=== PATIENT | male | born 1990 | race Caucasian/White ===

== ENCOUNTER 2016-11-21 06:18 | Emergency (ER) | payer MEDICAID ==
[~2016-11-21] VITALS: Ht 172.7 cm; Wt 113.4 kg
[~2016-11-21 06:18] MED LIST: AUGMENTIN 875-1 EACH PO; LEVAQUIN 750 M750 MG PO; NAPROSYN500 M1 PO; NOMEDS XX; NORCO 325 MG-51 TAB PO
--- NOTE | 2016-11-21 06:55 | Emergency Room Report ---
History of Present Illness Time Seen by MD Grewal Presenting Problem in Triage Pt arrived:Walked Presenting Problem:SORE THROAT, PAINFUL TO SWALLOW, BILATERAL EAR DISCOMFORT, SINCE YESTERDAY. 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 N Clinical Suspician of Infection? N Mental Status: 1 - Regular (Normal Baseline) Sepsis Risk:Possible Sepsis Risk Have you (or family members/close friends) recently traveled outside the [place]? N If Yes, where/when: Have you had exposure to infectious disease within the past month? N TB? Other? Specify: Source patient, RN notes reviewed, old records Exam Limitations no limitations Comment pt with laryngitis and sore throat with psychiatric arnp cough since starting new job with exposure to dust fibers- he also c/o of bilat carpel tunnel syndrome with acute excerbation Cardiac Chest Pain Chest pain indicative of cardiac No Timing/Duration this evening Severity moderate ALLERGIES Coded Allergies: No Known Allergies (07/19/16) Home Medications Reported Medications No Known Home Medications History Medical History General CAD? No Angina: No CA: No Hypertension? No Hyperlipidemia? No CHF? No DVT? No PE? No COPD? No Asthma? No Anemia? No GERD? No Gastric ulcers? No GI Bleed? No Hernia? No Thyroid Problems? No Hypothyroidism? No CVA? No Seizures? No Diabetes? No Renal Insuffiency? No End Stage Renal Disease? No UTI? No Stones? No BPH? No GB Disease: No Nephritic Syndrome? No Asplenia? No Hepatitis? No Sickle Cell Disease? No Arthritis? No Migraines? No Cataracts? No Glaucoma? No MRSA? No HIV? No TB? No Anxiety? No Depression? No Cancer? No More? No Immunization Hx DT/Tetanus Unknown Surgical Hx Previous Surgery?Y Tonsils Social History Smoking Hx Smoker: Never Smoker Tobacco: No Type Cigarettes Packs/day < 1 Pack Alcohol Alcohol: Yes Drugs none Review of Systems All Other Systems Reviewed and Negative Constitutional denies fever Eyes denies drainage ENT see HPI, throat pain. denies: ear pain, epistaxis, throat swelling. Respiratory denies cough, denies shortness of breath, denies wheezing Cardiovascular denies chest pain, denies palpitations, denies syncope Gastrointestinal denies abdominal pain, denies diarrhea, denies vomiting Genitourinary denies: dysuria, frequency, hesitancy, hematuria. Musculoskeletal see HPI, denies back pain, denies joint pain, denies joint swelling, denies neck pain, other Skin denies rash Psychiatric/Neurological denies headache, denies seizure Physical Exam Vital Signs Vital Signs Date Time Temp Pulse Resp B/P Pulse O2 O2 Flow FiO2 Ox Delivery Rate 11/21 0623 98.6 96 22 128/91 99 - WBC >12,000 or <4,000 or 10% bands? 2 or more SIRS Criteria Met? B/P:128/91 MAP:103 Creatinine >2.0? UA output<0.5ml/kg/hr for 2 hrs? Platelet count >100,000? Lactate >2.0mmol/1? INR >1.2 or PTT > than 60 sec? Evidence of Organ Dysfunction? Provider documented clinical suspician of infection? N Sepsis Criteria Count: 2 Sepsis Risk: Possible Sepsis Risk General Appearance no apparent distress Eye Exam - bilateral eye PERRL, bilateral eye EOMI Ear, Nose, Throat normal ENT inspection, normal pharynx Neck supple Respiratory Status No: respiratory distress. Lung Sounds bilateral: lungs clear. 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 No Results/Orders Orders Procedure Date/time Status STREP SCREEN THROAT 11/21 629 Complete CULTURE, THROAT 11/21 624 Active Departure Departure Time of Disposition 0708 Disposition DC Home or Self Care(routine) Clinical Impression Primary Impression: Pharyngitis Qualifiers: Pharyngitis/tonsillitis etiology: unspecified etiology Qualified Code: J02.9 - Acute pharyngitis, unspecified Secondary Impressions: CTS (carpal tunnel syndrome) Qualifiers: Laterality: bilateral Qualified Code: G56.03 - Carpal tunnel syndrome, bilateral upper limbs Condition STABLE Patient Instructions DI for Carpal Tunnel Syndrome Additional Instructions use meds and wear spints and see pcp and ortho for follow up Discharge Counseling Counseled pt/family regarding diagnosis, test results, medications/RX, follow up needs Prescriptions Current Visit Scripts CEPHALEXIN (Keflex 500MG Capsule) 500 MG PO Q8H #21 CAP Prednisone (Prednisone 20MG) 20 MG PO BID #10 TAB ED Critical Care Critical Care No at 0711
--- NOTE | 2016-11-21 06:55 | Emergency Room Report ---
History of Present Illness Time Seen by MD Grewal Presenting Problem in Triage Pt arrived:Walked Presenting Problem:SORE THROAT, PAINFUL TO SWALLOW, BILATERAL EAR DISCOMFORT, SINCE YESTERDAY. 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 N Clinical Suspician of Infection? N Mental Status: 1 - Regular (Normal Baseline) Sepsis Risk:Possible Sepsis Risk Have you (or family members/close friends) recently traveled outside the [place]? N If Yes, where/when: Have you had exposure to infectious disease within the past month? N TB? Other? 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 No Angina: No [place]: No Hypertension? No Hyperlipidemia? No CHF? No DVT? No PE? No COPD? No Asthma? No Anemia? No GERD? No Gastric ulcers? No GI Bleed? No Hernia? No Thyroid Problems? No Hypothyroidism? No CVA? No Seizures? No Diabetes? No Renal Insuffiency? No End Stage Renal Disease? No UTI? No Stones? No BPH? No GB Disease: No Nephritic Syndrome? No Asplenia? No Hepatitis? No Sickle Cell Disease? No Arthritis? No Migraines? No Cataracts? No Glaucoma? No MRSA? No HIV? No TB? No Anxiety? No Depression? No Cancer? No More? No Immunization Hx DT/Tetanus Unknown Surgical Hx Previous Surgery?Y Tonsils Social History Smoking Hx Smoker: Never Smoker Tobacco: No Type Cigarettes Packs/day < 1 Pack Alcohol Alcohol: Yes Drugs none Review of Systems All Other Systems Reviewed and Negative Constitutional denies fever Eyes denies drainage ENT see HPI, throat pain. denies: ear pain, epistaxis, throat swelling. Respiratory denies cough, denies shortness of breath, denies wheezing Cardiovascular denies chest pain, denies palpitations, denies syncope Gastrointestinal denies abdominal pain, denies diarrhea, denies vomiting Genitourinary denies: dysuria, frequency, hesitancy, hematuria. Musculoskeletal see HPI, denies back pain, denies joint pain, denies joint swelling, denies neck pain, other Skin denies rash Psychiatric/Neurological denies headache, denies seizure Physical Exam Vital Signs Vital Signs Date Time Temp Pulse Resp B/P Pulse O2 O2 Flow FiO2 Ox Delivery Rate 11/21 0623 98.6 96 22 128/91 99 - WBC >12,000 or <4,000 or 10% bands? 2 or more SIRS Criteria Met? B/P:128/91 MAP:103 Creatinine >2.0? UA output<0.5ml/kg/hr for 2 hrs? Platelet count >100,000? Lactate >2.0mmol/1? INR >1.2 or PTT > than 60 sec? Evidence of Organ Dysfunction? Provider documented clinical suspician of infection? N Sepsis Criteria Count: 2 Sepsis Risk: Possible Sepsis Risk General Appearance no apparent distress Eye Exam - bilateral eye PERRL, bilateral eye EOMI Ear, Nose, Throat normal ENT inspection, normal pharynx Neck supple Respiratory Status No: respiratory distress. Lung Sounds bilateral: lungs clear. 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 No Results/Orders Orders Procedure Date/time Status STREP SCREEN THROAT 11/21 629 Complete CULTURE, THROAT 11/21 624 Active Departure Departure Time of Disposition 0708 Disposition DC Home or Self Care(routine) Clinical Impression Primary Impression: Pharyngitis Qualifiers: Pharyngitis/tonsillitis etiology: unspecified etiology Qualified Code: J02.9 - Acute pharyngitis, unspecified Secondary Impressions: CTS (carpal tunnel syndrome) Qualifiers: Laterality: bilateral Qualified Code: G56.03 - Carpal tunnel syndrome, bilateral upper limbs Condition STABLE Patient Instructions DI for Carpal Tunnel Syndrome Additional Instructions use meds and wear spints and see pcp and ortho for follow up Discharge Counseling Counseled pt/family regarding diagnosis, test results, medications/RX, follow up needs Prescriptions Current Visit Scripts CEPHALEXIN (Keflex 500MG Capsule) 500 MG PO Q8H #21 CAP Prednisone (Prednisone 20MG) 20 MG PO BID #10 TAB ED Critical Care Critical Care No at 0711
[2016-11-21] MEDS ORDERED: KEFLEX 500MG.500 MG PO (07:10)
[2016-11-21] MEDS ORDERED: PREDNISONE 20MG20 MG PO (07:10)
[2016-11-21 07:56] VITALS: BP 121/79
== END 2016-11-21 07:57 | disposition home or self-care (01) ==
LOC: ER 06:18
DX: J02.9 Acute pharyngitis, unspecified (principal); G56.03 Carpal tunnel syndrome, bilateral upper limbs

== ENCOUNTER 2016-11-22 03:36 | Emergency (ER) | payer MEDICAID ==
[~2016-11-22] VITALS: Ht 172.7 cm; Wt 113.4 kg
[~2016-11-22 03:36] MED LIST changes: +KEFLEX 500MG.500 MG PO; +PREDNISONE 20MG20 MG PO
--- NOTE | 2016-11-22 03:54 | Emergency Room Report ---
History of Present Illness Time Seen by MD Irizarry Presenting Problem in Triage Pt arrived:Walked Presenting Problem:RIGHT EAR PAIN, PT STATES PAIN WOKE HIM ABOUT 45 MINS AGO. 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 N Clinical Suspician of Infection? N Mental Status: 1 - Regular (Normal Baseline) Sepsis Risk:Low Sepsis Risk Have you (or family members/close friends) recently traveled outside the [place]? N If Yes, where/when: Have you had exposure to infectious disease within the past month? N TB? Other? Specify: Source patient, RN notes reviewed, old records Exam Limitations no limitations Comment was here last pm with sore throat - has not started meds yet - has rt ear pain with no trauma or rash Cardiac Chest Pain Chest pain indicative of cardiac No Timing/Duration this evening Severity moderate ALLERGIES Coded Allergies: No Known Allergies (07/19/16) Home Medications Active Scripts CEPHALEXIN (Keflex 500MG Capsule) 500 MG PO Q8H #21 CAP Prov: 11/21/16 Prednisone (Prednisone 20MG) 20 MG PO BID #10 TAB Prov: 11/21/16 History Medical History General CAD? No Angina: No [place]: No Hypertension? No Hyperlipidemia? No CHF? No DVT? No PE? No COPD? No Asthma? No Anemia? No GERD? No Gastric ulcers? No GI Bleed? No Hernia? No Thyroid Problems? No Hypothyroidism? No CVA? No Seizures? No Diabetes? No Renal Insuffiency? No End Stage Renal Disease? No UTI? No Stones? No BPH? No GB Disease: No Nephritic Syndrome? No Asplenia? No Hepatitis? No Sickle Cell Disease? No Arthritis? No Migraines? No Cataracts? No Glaucoma? No MRSA? No HIV? No TB? No Anxiety? No Depression? No Cancer? No More? No Immunization Hx DT/Tetanus Unknown Surgical Hx Previous Surgery?Y Tonsils Social History Smoking Hx Smoker: Never Smoker Tobacco: No Type Cigarettes Packs/day < 1 Pack Alcohol Alcohol: Yes Drugs none Review of Systems All Other Systems Reviewed and Negative Constitutional denies fever Eyes denies drainage ENT see HPI, ear pain, throat pain. denies: ear discharge, epistaxis, throat swelling. Respiratory denies cough, denies shortness of breath, denies wheezing Cardiovascular denies chest pain, denies syncope Gastrointestinal denies abdominal pain, denies diarrhea, denies vomiting Genitourinary denies: dysuria, frequency, hesitancy, hematuria. Musculoskeletal denies back pain, denies joint pain, denies joint swelling, denies neck pain Skin denies rash Psychiatric/Neurological denies headache, denies seizure Physical Exam Vital Signs Vital Signs Date Time Temp Pulse Resp B/P Pulse O2 O2 Flow FiO2 Ox Delivery Rate 11/22 0339 97.7 110 16 167/102 96 - WBC >12,000 or <4,000 or 10% bands? 2 or more SIRS Criteria Met? B/P:167/102 MAP:123 Creatinine >2.0? UA output<0.5ml/kg/hr for 2 hrs? Platelet count >100,000? Lactate >2.0mmol/1? INR >1.2 or PTT > than 60 sec? Evidence of Organ Dysfunction? Provider documented clinical suspician of infection? N Sepsis Criteria Count: 1 Sepsis Risk: Low Sepsis Risk General Appearance no apparent distress Eye Exam - bilateral eye PERRL, bilateral eye EOMI Ear, Nose, Throat abnormal TM (R), pharyngeal erythema Neck non-tender Respiratory Status No: respiratory distress. 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 No Departure Departure Time of Disposition 0352 Disposition DC Home or Self Care(routine) Clinical Impression Primary Impression: Otitis media Qualifiers: Otitis media type: suppurative Chronicity: acute Laterality: right Recurrence: not specified as recurrent Spontaneous tympanic membrane rupture: without spontaneous rupture Qualified Code: H66.001 - Acute suppurative otitis media without spontaneous rupture of ear drum, right ear Condition STABLE Patient Instructions DI for Ear Pain-Adult Additional Instructions use meds and see pcp for follow up Discharge Counseling Counseled pt/family regarding diagnosis, follow up needs ED Critical Care Critical Care No at 0354
[2016-11-22 04:28] VITALS: BP 158/90
[2016-12-14] MEDS ORDERED: PERCOCET1 TAB PO (09:43)
== END 2016-11-22 04:00 | disposition home or self-care (01) ==
LOC: ER 03:36
DX: H66.001 Acute suppurative otitis media without spontaneous rupture of ear drum, right ear (principal)

== ENCOUNTER 2016-11-24 12:32 | Emergency (ER) | payer MEDICAID ==
[~2016-11-24] VITALS: Ht 172.7 cm; Wt 113.4 kg
[2016-11-24] MEDS ORDERED: CORTISPORIN OTI10 M1 OT (12:46)
--- NOTE | 2016-11-24 12:58 | Urgent Treatment Center Report ---
History of Present Issue Date/Time Seen by Provider 11/24/16 1240 Visit Reason Pt arrived:Walked Presenting Problem:PT STATES BEING SEEN IN ED WEDNESDAY NIGHT. STATES HE WAS GIVEN AN ANTIBIOTIC BUT HAS NOT IMPROVED. STATES SYMPTOMS CONTINUE OF EAR PRESSURE, COUGH AND NOW HAS LOWER BACK PAIN. STATES WEDNESDAY HE HAS HOARSENESS THAT HAS IMPROVED Location if Accident: Onset of symptoms date/time:/ or onset unknown for:MEDICAL HX UNKNOWN Have you (or family members/close friends) recently traveled outside the [facility]? N If Yes, where/when: Have you had exposure to infectious disease within the past month? TB? Other? Specify: c/o continued ear pain and cough but now also mid low back pain worse w/ coughing. Symptoms started about 4 days ago. Seen in ER 11/21 for symptoms and also Julieth wrist pain. Dx pharyngitis and CTS. Rx keflex and prednisone 20mg BID. No better 11/22. Returned to ER. Dx OM. told to continue keflex and added polytrim drops. Still no better. Hasn't taken or tried anything else for symptoms. No known injury to cause low back pain. pain anywhere other then mid low back. No hip, buttock or leg pain. No N/T. No incontinence or difficulty urinating. Source patient Exam Limitations no limitations ALLERGIES Coded Allergies: No Known Allergies (07/19/16) Home Medications Active Scripts CEPHALEXIN (Keflex 500MG Capsule) 500 MG PO Q8H #21 CAP Prov: 11/21/16 Prednisone (Prednisone 20MG) 20 MG PO BID #10 TAB Prov: 11/21/16 Reported Medications [id number] OTIC SOLN (Kltkgpcj-Gupwohlbb-Xx Ear Soln) 4 DROP OT QID History Medical History General CAD? No Angina: No CA: No Hypertension? No Hyperlipidemia? No CHF? No DVT? No PE? No COPD? No Asthma? No Anemia? No GERD? No Gastric ulcers? No GI Bleed? No Hernia? No Thyroid Problems? No Hypothyroidism? No CVA? No Seizures? No Diabetes? No Renal Insuffiency? No UTI? No Stones? No BPH? No GB Disease: No Nephritic Syndrome? No Asplenia? No Hepatitis? No Sickle Cell Disease? No Arthritis? No Migraines? No Cataracts? No Glaucoma? No MRSA? No HIV? No TB? No Anxiety? No Depression? No Cancer? No More? No Immunization HX DT/Tetanus 1-4 Years Ago Surgical Hx Previous Surgery?Y Tonsils Social History Smoking Hx Smoker: Former Smoker Tobacco: No Packs/day < 1 Pack Alcohol Alcohol: Yes Review of Systems All Other Systems Reviewed and Negative Constitutional see HPI, denies fever Eyes denies drainage ENT see HPI, ear pain (julieth now but right > left), nose discharge, nose congestion, throat pain (mostly in morning). denies: ear discharge, throat swelling. Respiratory see HPI, cough (nonprod), denies shortness of breath, denies wheezing Cardiovascular denies chest pain Gastrointestinal denies no symptoms reported Musculoskeletal see HPI Skin denies lesions, denies lumps, denies rash Psychiatric/Neurological see HPI Physical Exam Vital Signs Vital Signs Date Time Temp Pulse Resp B/P Pulse O2 O2 Flow FiO2 Ox Delivery Rate 11/24 1312 98.4 74 20 130/68 97 11/24 1241 98.4 74 20 130/68 97 General Appearance no apparent distress, obese Eye Exam - bilateral eye normal exam Ear, Nose, Throat normal pharynx, left EAC normal, right EAC erythematous and slightly swollen partially blocking view of TM. TM appears red and questionable perforated. Non tender. left EAC dull, bright red. mild nasal congestion. Neck non-tender, supple Respiratory Status No: respiratory distress, productive cough, non productive cough. Lung Sounds anterior: lungs clear. posterior: lungs clear. bilateral: lungs clear. Cardiovascular regular rate/rhythm, no peripheral edema, no murmur Peripheral Pulses Pulses normal Yes (DP/PT) Back normal inspection, no vertebral tenderness, gait normal, strt leg raising(L )-NML, strt leg raising(R)-NML, no tenderness Extremities normal range of motion, normal inspection Strength 5 Lower Ext (L), 5 Lower Ext (R) Neurologic alert, no motor/sensory deficits, oriented x 3 Reflexes Reflexes normal Yes (patellar) Mental status normal mood/affect Skin normal color, warm/dry Lymphatic no adenopathy Medical Decision Making LABS/Meds/Orders Pt receiving controlled substance in ED? No Departure Departure Time of Disposition 1305 Disposition DC Home or Self Care(routine) Clinical Impression Primary Impression: Right otitis externa Secondary Impressions: Bilateral otitis media Qualifiers: Otitis media type: unspecified Chronicity: unspecified Qualified Code: H66.93 - Otitis media, unspecified, bilateral Cough Low back pain Qualifiers: Chronicity: acute Back pain laterality: midline Sciatica presence: without sciatica Qualified Code: M54.5 - Low back pain Condition STABLE Referrals Estuardo BAEZ,Bertrand Lagunas Appt , 11/26 at 1pm due to persistant ear pain and questionable right TM perforation. Return to [facility], ER or preferably your primary care for new or worsening symptoms. If back pain persist, be sure to follow up as this is not something Dr. king treats. Patient Instructions DI for Cough -- Adult, DI for Low Back Pain, DI for Otitis Externa, DI for Otitis Media (Middle Ear Infection)-Child Additional Instructions * Stop current antibiotic, start new antibiotic * Stop current ear drops, start new ear drops * continue steroids * Monitor Temp. Seek treatment for any fever. * Encourage fluids, water, gatorade, powerade, pedialyte if /toddler/child * warm salt water gargles * warm fluids * sore throat lozenges * sleep elevated * humidifier/vaporizer * flonase 2 sprays each nostril daily but may take 2-3 days to notice improvement with it. * Bromfed may cause drowsiness. Know how it effects you (or your child) before driving, caring for small children, or sending your child to school. No other antihistamines/allergy medications while taking bromfed. For back * naproxen every 12 hours with meal as needed for pain/inflammation. * should improve as cough improves * No additional anti-inflammatories like motrin, aleve, advil with the above amount of naproxen. You CAN still take Tylenol every 4 hours as needed if you need something more for pain. * * Keep this area active. No movement leads to more stiffness. However, take it easy too and avoid heavy lifting, pushing, pulling * Ice x15-20 mins 3-4 times a day for first 48 hours after the initial injury followed by moist heat x15-20 mins 3-4 times a day to affected area Discharge Counseling Counseled pt/family regarding diagnosis, medications/RX, home care, follow up needs Prescriptions Current Visit Scripts AMOXICILLIN (Amoxicillin 875MG Tab) 875 MG PO BID #20 TAB Fluticasone Propionate (Flonase 50 Mcg Nasal Capron) 2 SPRAY NA DAILY #1 BOT CIPROFLOXACIN HCL/DEXAMETH (Ciprodex Otic Suspension) 4 DROP OT BID #1 BOT right ear D-METHORPHAN HB/P-EPD HCL/BPM (Bromfed Dm Cough Syrup) 10 ML PO QIDP PRN cough/ congestion #240 ML NAPROXEN (NAPROSYN 500MG TAB) 500 MG PO BID #14 TAB Comments [facility] called. Insurance requires ofloxacin first. at [id number]
[2016-11-24 13:12] VITALS: BP 130/68
[2016-11-24] MEDS ORDERED: CIPRODEX 0.3%-7.5 ML OT (13:12)
[2016-11-24] MEDS ORDERED: BROMFED DM COU118 ML PO (13:12)
[2016-11-24] MEDS ORDERED: FLONASE 50 MCG16 GM (13:12)
[2016-11-24] MEDS ORDERED: AMOXICILLIN875 MG PO (13:12)
[2016-11-24] MEDS ORDERED: NAPROSYN 500MG500 MG PO (13:14)
[2016-12-14] MEDS ORDERED: PERCOCET1 TAB PO (09:43)
== END 2016-11-24 13:19 | disposition home or self-care (01) ==
LOC: UTC 12:32
DX: H66.93 Otitis media, unspecified, bilateral (principal); R05 Cough; M54.5 Low back pain

== ENCOUNTER 2016-12-06 21:16 | Emergency (ER) | payer MEDICAID ==
[~2016-12-06] VITALS: Ht 172.7 cm; Wt 113.4 kg
[~2016-12-06 21:16] MED LIST changes: +AMOXICILLIN875 MG PO; +BROMFED DM COU118 ML PO; +CIPRODEX 0.3%-7.5 ML OT; +CORTISPORIN OTI10 M1 OT; +FLONASE 50 MCG16 GM; +NAPROSYN 500MG500 MG PO
--- NOTE | 2016-12-06 22:54 | Emergency Room Report ---
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 N Clinical Suspician of Infection? N Mental Status: 1 - Regular (Normal Baseline) Sepsis Risk:Possible Sepsis Risk Have you (or family members/close friends) recently traveled outside the [place]? N If Yes, where/when: Have you had exposure to infectious disease within the past month? N TB? Other? Specify: Source patient, RN notes reviewed, RN/MD Exam Limitations no limitations Comment This is a 25-year-old male patient presenting to the emergency room with pain in the pelvic floor associated with rectal bleeding, noticed over the past 48 hours. Patient has any fever, any chills, any penile discharge. He has noticed bright red blood in the toilet paper upon wiping his anal area. Patient has researched on Internet his condition and so diagnosed himself with hemorrhoids. He started using Preparation H shortly after. ALLERGIES Coded Allergies: No Known Allergies (07/19/16) Home Medications Active Scripts NAPROXEN (NAPROSYN 500MG TAB) 500 MG PO BID #14 TAB Prov: 11/24/16 History Medical History General CAD? No Angina: No AL: No Hypertension? No Hyperlipidemia? No CHF? No DVT? No PE? No COPD? No Asthma? No Anemia? No GERD? No Gastric ulcers? No GI Bleed? No Hernia? No Thyroid Problems? No Hypothyroidism? No CVA? No Seizures? No Diabetes? No Renal Insuffiency? No End Stage Renal Disease? No UTI? No Stones? No BPH? No GB Disease: No Nephritic Syndrome? No Asplenia? No Hepatitis? No Sickle Cell Disease? No Arthritis? No Migraines? No Cataracts? No Glaucoma? No MRSA? No HIV? No TB? No Anxiety? No Depression? No Cancer? No More? No Immunization Hx Ped.Immunizations UTD Yes DT/Tetanus 1-4 Years Ago Surgical Hx Previous Surgery?Y Tonsils Social History Smoking Hx Smoker: Former Smoker Tobacco: No Type Cigarettes Packs/day < 1 Pack Alcohol Alcohol: Yes Review of Systems All Other Systems Reviewed and Negative Gastrointestinal other (rectal bleeding) Genitourinary pain (pelvic floor). Physical Exam Vital Signs Vital Signs Date Time Temp Pulse Resp B/P Pulse O2 O2 Flow FiO2 Ox Delivery Rate 12/07 0217 98.0 102 20 122/100 98 12/07 0126 102 20 122/100 98 12/07 0023 98 20 133/70 98 12/06 2319 107 20 157/128 98 12/06 2135 98.0 115 20 154/88 99 General Appearance normal appearance, WD/WN, mild distress Respiratory Status Yes: trachea midline, chest symmetrical, non tender chest. No: respiratory distress. Lung Sounds bilateral: normal breath sounds, lungs clear. Cardiovascular normal exam, regular rate/rhythm, no peripheral edema, no gallop, no JVD, no murmur, no rub, normal peripheral pulses Peripheral Pulses Pulses normal Yes Gastrointestinal normal bowel sounds, soft, no organomegaly, examination of the pelvic floor reveals an induration of one by one in between anus and there is insertion into the pelvis/testicles. This area of induration is tender, however there is no central fluctuance, there is no erythema or warmth to touch. 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 Medical Decision Making LABS/Meds/Orders Pt receiving controlled substance in ED? No Comment Upon reexamination of patient appears medically stable, in no acute distress. Was patient results obtained, as well as need for him to start antibiotics immediately and follow-up with one of the local general surgeons for additional management. Advised patient to return promptly to the emergency room if unable to see either of the local general surgeons within the next 2 days. Patient understands discharge instructions, which were explained at detail to him. Results/Orders Laboratory Tests 12/07/16 0105: Sodium 135 L, Potassium 3.7, Chloride 103, Carbon Dioxide 25, BUN 12, Creatinine 0.8, Estimated Creat Clear 226 H, Estimated GFR (MDRD) 118, Glucose 104, Calcium 8.9, Total Bilirubin 0.3, AST 17, ALT 53, Alkaline Phosphatase 84, Total Protein 7.8, Albumin 3.7, Globulin 4.1 H, Albumin/Globulin Ratio 0.9 L, WBC 13.5 H, RBC 5.14, Hgb 15.6, Hct 46.8, MCV 91.0, RDW 12.3, Plt Count 304, MPV 7.5, Gran % 71.3, Gran # 9.6 H, Lymphocytes % 19.9, Monocytes % 7.0, Eosinophils % 1.4, Basophils % 0.5, Lymphocytes # 2.7, Monocytes # 0.9, Eosinophils # 0.2, Basophils # 0.1, PUBS MCHC 33.3, MCH 30.3 12/06/162254: Urine Color YELLOW, Urine Appearance CLEAR, Urine pH 6.0, Ur Specific [place] >= 1.030, Urine Protein NEGATIVE, Urine Ketones NEGATIVE, Urine Blood 2+ H, Urine Nitrate NEGATIVE, Urine Bilirubin NEGATIVE, Urine Urobilinogen 0.2, Ur Leukocyte Esterase NEGATIVE, Urine RBC 5-10, Amorphous Sediment TRACE, Urine Mucus 4+, Urine Glucose NEGATIVE Current Medication Orders Sig/Jojo Start time Last Medication Dose Route Stop Time Status Admin Tramadol HCl 0 .STK-MED ONE 12/07 0214 DC PO Tramadol HCl 1 ERIN ONCE ONE 12/07 0200 DC 12/07 PO 12/07 020 0215 Iopamidol 75 ML ONCE ONE 12/07 0145 DCD 12/07 IV 12/07 0146 0136 Sodium Chloride 10 ML PRN PRN 12/07 0145 DCD 12/07 IV 12/07 0306 0136 Ceftriaxone Sodium 0 .STK-MED ONE 12/07 0120 DC IV Sodium Chloride 50 ML .STK-MED ONE 12/07 0120 DC IV Ceftriaxone Sodium 1 GM ONCE ONE 12/07 0115 DC 12/07 Sodium Chloride 50 ML IV 12/07 014 0122 Sodium Chloride 10 ML PRN PRN 12/06 2299 DCD IV 12/08 2251 Orders Procedure Date/time Status DIET-NOTHING BY MOUTH 12/[address] ABD/PELVIS REQ 12/06 2252 Active IV SALINE LOCK 09/24 2253 Active URINALYSIS/COMPLETE 12/06 2252 Complete CBC WITH AUTO DIFF 12/06 2252 Complete CHEM 12 PROFILE 12/06 2252 Complete XRAY/CT/US XRAY/CT/US CT abdomen, pelvis CT interpretation by discussed w/radiologist CT Results see radiologist's report from virtual radiology Departure Departure Time of Disposition 113 Disposition DC Home or Self Care(routine) Clinical Impression Primary Impression: Anal fissure Secondary Impressions: Abscess Condition STABLE Referrals Johnathan BAEZ,Joseph CARABALLO MD,JESSA Banegas Patient Instructions DI for Anal Fissure, DI for Skin Abscess Additional Instructions Please take the medications prescribed as directed, follow-up with one of the general surgeons listed above, Dr. Caraballo or Dr. Mann, within the next 2 days. If worse and/or unable to see any of the surgeons listed timely, please return promptly to this emergency room for re-evaluation. Discharge Counseling Counseled pt/family regarding diagnosis, test results, medications/RX, home care, follow up needs Comment Please take the medications prescribed as directed, follow-up with one of the general surgeons listed above, Dr. Caraballo or Dr. Mann, within the next 2 days. If worse and/or unable to see any of the surgeons listed timely, please return promptly to this emergency room for re-evaluation. Prescriptions Current Visit Scripts Amoxicillin/Potassium Clav (Augmentin 875-125 Tablet) 1 EACH PO BID #20 TAB Tramadol Hcl (Ultram 50MG) 50 MG PO QIDP PRN pain #12 TAB ED Critical Care Critical Care No at 0854
[2016-12-06 23:00] LABS: URINE BILIRUBIN - DIPSTICK NEGATIVE (NEG); URINE BLOOD 2+ (NEG)
[2016-12-07 01:14] LABS: HEMOGLOBIN 15.6 g/dL (14.1-18.0); LYMPH # 2.7 K/mm3 (0.7-4.5); LYMPH % 19.9 % (10-50)
[2016-12-07] MEDS ORDERED: AUGMENTIN 875-1 EACH PO (01:18)
[2016-12-07] MEDS ORDERED: ULTRAM50 MG PO (02:01)
[2016-12-07 02:17] VITALS: BP 122/100
--- NOTE | 2016-12-07 04:31 | RADIOLOGY REPORT PS360 ---
CT ABD PELVIS W/ CONTRAST CLINICAL INDICATION: Rectal mass, rectal bleeding RECTAL BLEEDING ORDERING PHYSICIAN: James Ureña MD PATIENT AGE: 25 years COMPARISON: None TECHNIQUE: Axial images obtained with sagittal and coronal reformats. PROCEDURE: Oral Contrast: None IV Contrast: 75 mL [id number]. FINDINGS: The lung bases are clear. The liver, spleen, adrenal glands, pancreas, gallbladder, kidneys, ureters, appendix, urinary bladder, and prostate have an unremarkable appearance. No intestinal structures are free air. The lack of oral contrast somewhat limits evaluation of the colon. No evidence of diverticulitis. Nondistended haustra versus diverticulosis noted in the sigmoid colon. No obvious rectal mass by CT. No abnormal fluid collections. No adenopathy or aneurysm. No acute bony anomalies mild kyphosis of the thoracolumbar junction with multiple small Schmorl's nodes of the thoracic spine. IMPRESSION: 1. No acute finding. 2. Nondistended haustra versus diverticulosis of the sigmoid colon.
[2016-12-14] MEDS ORDERED: PERCOCET1 TAB PO (09:43)
== END 2016-12-07 02:19 | disposition home or self-care (01) ==
LOC: ER 21:16
PROVIDERS: Emergency Medicine
DX: K60.0 Acute anal fissure (principal); F17.210 Nicotine dependence, cigarettes, uncomplicated
CPT/HCPCS: Q9967

== ENCOUNTER → 2016-12-08 | Outpatient (CLI) | payer MEDICAID ==
[~2016-12-08] MED LIST changes: +PERCOCET1 TAB PO; +ULTRAM50 MG PO
[2016-12-08 17:36] LABS: BUN 9 mg/dL (7-18)
[2016-12-08 18:57] LABS: GFR (ESTIMATED) 137 ML/MIN (>60)
== END ==
LOC: LAB 15:07
PROVIDERS: Surgery
DX: K61.0 Anal abscess (principal); Z01.812 Encounter for preprocedural laboratory examination

== ENCOUNTER → 2016-12-09 | Outpatient (CLI) | payer MEDICAID | LOC: LAB 16:33 | DX: K61.0 Anal abscess (principal); Z01.812 Encounter for preprocedural laboratory examination ==

== ENCOUNTER 2016-12-10 08:35 | Day surgery (SDC) | payer MEDICAID ==
[2016-12-09 17:22] LABS: LYMPH # 2.1 K/mm3 (0.7-4.5); LYMPH % 15.6 % (10-50)
[~2016-12-10] VITALS: Ht 177.8 cm; Wt 113.4 kg
[~2016-12-10 08:35] MED LIST changes: -PERCOCET1 TAB PO
--- NOTE | 2016-12-10 11:20 | Operative Note ---
Surgeon/Diagnoses Surgeon/Asset Protection Professional(s) Date of procedure: 12/10/16 Surgeon: MD Onesimo Caraballo Diagnoses Pre-op diagnosis: Perineal abscess Post-op diagnosis Same Procedure Procedure Procedure: Incision and drainage of perineal abscess Indications: APRIL DIAZ is a 25 year-old Male with a history of pain and swelling in around the perineal area with changes consistent with abscess. Findings: Thin perineal fluid with surrounding induration and erythema with a majority of changes just to the LEFT of midline and some to the RIGHT. Procedure Description: After informed consent was obtained, the patient was taken to the operating room and placed in the supine position. General anesthesia was induced and was transferred to a modified lithotomy position. The perineal region was prepped and draped in a sterile fashion. An elliptical incision was made along the LEFT side just overlying the central portion of the induration. The deep subcutaneous tissue was dissected with cautery. Then purulent fluid was encountered. The purulent pockets were "broken up" manually. An area of induration and erythema on the RIGHT side was also evaluated. This was treated in the same manner. Both areas were packed with moistened Kerlix that was infiltrated with 1 percent lidocaine. Dressings were applied and the patient was transferred to recovery in stable condition after anesthetic agents were reversed and his laryngeal mask airway was removed. EBL (ml): 25 Anesthesia: General Complications: No immediate Specimens: Overlying skin for Gram stain and culture Disposition Disposition: Stable recovery from where he will be discharged home. at 1120
--- NOTE | 2016-12-10 11:32 | Anesthesia Record ---
Anesthesia Record Part II Discharge time: 1159 Destination: Same day surgery PACU nurse assessment review? Yes Patient is: Awake, Stable Anesthesia complications? No at 1134
--- NOTE | 2016-12-10 11:32 | Anesthesia Record ---
Anesthesia Record Part I Total IV fluids: 400 EBL (ml): 25 Urine Output: 100 B/P: 156/99 % SaO2: 99 Pulse: 117 Resps: 18 Temp: 97.2 Patient is: Awake, Nasal O2, Stable Stable to PACU at: 1129 at 1132
--- NOTE | 2016-12-10 11:32 | Anesthesia Record ---
Anesthesia Record Part II Discharge time: 1159 Destination: Same day surgery PACU nurse assessment review? Yes Patient is: Awake, Stable Anesthesia complications? No at 1138
[2016-12-10 15:07] VITALS: BP 154/92
[2016-12-14] MEDS ORDERED: PERCOCET1 TAB PO (09:43)
== END 2016-12-10 13:05 | disposition home or self-care (01) ==
LOC: SDC 08:35
PROVIDERS: Surgery
PROC: 0J9B0ZZ Drainage of Perineum Subcutaneous Tissue and Fascia, Open Approach (ICD-10-PCS; principal; 2016-12-10 10:00)
DX: L02.215 Cutaneous abscess of perineum (principal)
CPT/HCPCS: J0131; J2405

== ENCOUNTER 2016-12-11 08:50 | Outpatient (CLI) | payer MEDICAID | END 2016-12-11 10:15 | disposition home or self-care (01) | LOC: COP 08:50 | DX: L02.215 Cutaneous abscess of perineum (principal); Z48.01 Encounter for change or removal of surgical wound dressing ==

== ENCOUNTER 2016-12-14 09:30 | Outpatient (CLI) | payer MEDICAID | END 2016-12-14 10:15 | disposition home or self-care (01) | LOC: COP 09:30 | DX: L02.215 Cutaneous abscess of perineum (principal) ==

== ENCOUNTER 2017-01-24 09:48 | Emergency (ER) | payer MEDICAID ==
[~2017-01-24] VITALS: Ht 177.8 cm; Wt 134.7 kg
[~2017-01-24 09:48] MED LIST changes: +PERCOCET1 TAB PO
--- OUTSIDE RECORDS SUMMARY | 2017-01-24 09:53 | External Medical Summary Rpt | CCD ---
Author Author , RAQUEL Organization [employer] Address Unknown Phone [email or web address] Purpose Continuity of Care Document - 11-21-2016 through 2016 Problems Code Diagnosis DOS Provider Status G56.00 CARPAL TUNNEL SYNDROME, UNSPECIFIED UPPER LIMB H66.90 OTITIS MEDIA, UNSPECIFIED , UNSPECIFIED EAR J02.9 ACUTE PHARYNGITIS , UNSPECIFIED J18.9 PNEUMONIA, UNSPECIFIED ORGANISM J40 BRONCHITIS, NOT SPECIFIED ACUTE OR CHRONIC K60.2 ANAL FISSURE, UNSPECIFIED L02.91 CUTANEOUS ABSCESS, UNSPECIFIED M25.462 EFFUSION, LEFT KNEE M67.40 GANGLION, UNSPECIFIED SITE S83.92XA SPRAIN OF UNSPECIFIED SITE OF LEFT KNEE, INITIAL ENCOUNTER Results Labs Lab Lab Date Result Refere Interp Status Commen Order Detail nces retati t Range on Streptococcus pyogenes Ag [Presence] in Unspecified specimen (11-21-2016 06:25) Strepto NEGATIV complet coccus 017 E ed pyogene 06:25 s Ag [Presen ce] in Unspeci fied specime n
--- OUTSIDE RECORDS SUMMARY | 2017-01-24 09:53 | External Medical Summary Rpt | CCD ---
Author Author , [employer]EL Organization [employer] Address Unknown Phone [email or web address] Purpose Continuity of Care Document - 11-21-2016 [...]
--- OUTSIDE RECORDS SUMMARY | 2017-01-24 09:54 | External Medical Summary Rpt | CCD ---
Author Author , RAQUEL GARCÍA Address Unknown Phone [email or web address] Immunization Name Date Rout CVX Reac Dose Comm Prov Is Faci e tion ent ider Refu lity Give sed n Hep 08-2 8 999 Hist H136 No H136 B, 7-20 [facility] al adol Info rmat ion - Sour ce Unsp ecif ied
--- OUTSIDE RECORDS SUMMARY | 2017-01-24 09:54 | External Medical Summary Rpt ---
Author Author JUAN AQUINTIN Portillo, [employer] Organization [employer] Address Unknown Phone Unavailable Results CBC W Auto Differential panel in Blood Observa Value Referen Units Interpr Notes Date tion ce etation Range Granulocy 1.3 - 8.0 K/mm3 High No Sep 27 sneha informati 2017 4:36 [#/volume on in PM ] in source Blood by data Automated count Granulocy 37.0 - % High No Sep 27 sneha/100 80.0 informati 2017 4:36 leukocyte on in PM s in source Blood by data Automated count Hematocri 42.0 - % Normal No Sep 27 t [Volume 52.0 informati 2017 4:36 on in PM Fraction] source of Blood data Hemoglobi 14.1 - g/dL Low No Sep 27 n 18.0 informati 2017 4:36 [Mass/vol on in PM ume] in source Blood data Lymphocyt 0.7 - 4.5 K/mm3 Normal No Sep 27 es informati 2017 4:36 [#/volume on in PM ] in source Unspecifi data ed specimen by Automated count Lymphocyt 10 - 50 % Normal No Sep 27 es informati 2017 4:36 [#/volume on in PM ] in source Unspecifi data ed specimen by Automated count Erythrocy 27 - 31.2 pg Normal No Sep 27 te mean informati 2017 4:36 corpuscul on in PM ar source hemoglobi data n [Entitic mass] Erythrocy 31.8 - g/dl Normal No Sep 27 te mean 35.4 informati 2017 4:36 corpuscul on in PM ar source hemoglobi data n concentra tion [Mass/vol ume] by Automated count Erythrocy 82.2 - fL Normal No Sep 27 te mean 97.8 informati 2017 4:36 corpuscul on in PM ar volume source [Entitic data volume] by Automated count Monocytes 0.1 - 1.0 K/mm3 Normal No Sep 27 informati 2017 4:36 [#/volume on in PM ] in source Blood by data Automated count Monocytes 1.7 - 9.3 % Normal No Sep 27 /100 informati 2017 4:36 leukocyte on in PM s in source Blood by data Automated count Platelets 142 - 424 K/mm3 Normal No Sep 27 informati 2017 4:36 [#/volume on in PM ] in source Blood data Erythrocy 4.6 - 6.2 M/mm3 Normal No Sep 27 sneha informati 2016 4:36 [#/volume on in PM ] in source Amniotic data fluid Erythrocy 11.5 - % Normal No Sep 27 te 17.5 informati 2016 4:36 distribut on in PM ion width source [Entitic data volume] by Automated count Leukocyte 4.8 - K/mm3 High No Sep 27 s 10.8 informati 2017 4:36 [#/volume on in PM ] in source Blood data Basic metabolic panel in Blood Observa Value Referen Units Interpr Notes Date tion ce etation Range Urea 7 - 18 mg/dL Normal No Sep 26 nitrogen informati 2017 3:08 [Mass/vol on in PM ume] in source Serum or data Plasma Calcium 8.5 - mg/dL Normal No Sep 26 [Mass/vol 10.1 informati 2017 3:08 ume] in on in PM Serum or source Plasma data Chloride 98 - 107 mmoL/L Normal No Sep 26 [Moles/vo informati 2017 3:08 lume] in on in PM Serum or source Plasma data Carbon 21.0 - mmoL/L Normal No Sep 26 dioxide, 32.0 informati 2017 3:08 total on in PM [Moles/vo source lume] in data Serum or Plasma Creatinin 0.70 - mg/dL Low No Sep 26 e 1.30 informati 2017 3:08 [Mass/vol on in PM ume] in source Serum or data Plasma Estimated >60 ML/MIN No REFERENCE Sep 26 informati RANGE: 2017 3:08 glomerula on in >60 PM r source ML/MIN/1. filtratio data 73 SQUARE n rate METERSIf (GF this patient is -A merican, then multiply theresult by 1.210. Glucose 74 - 106 mg/dL Normal No Sep 26 [Mass/vol informati 2017 3:08 ume] in on in PM Serum or source Plasma data Potassium 3.5 - 5.1 mmoL/L Normal No Sep 26 informati 2017 3:08 [Moles/vo on in PM lume] in source Serum or data Plasma Sodium 136 - 145 mmoL/L Normal No Sep 26 [Moles/vo informati 2017 3:08 lume] in on in PM Serum or source Plasma data Comprehensive metabolic 2000 panel in Serum or Plasma Observa Value Referen Units Interpr Notes Date tion ce etation Range Albumin/G 1.1 - 1.8 No Low No Sep 25 lobulin informati informati 2017 1:05 [Mass on in on in AM ratio] in source source Serum or data data Plasma Albumin 3.4 - 5.0 gm/dL Normal No Sep 25 [Mass/vol informati 2017 1:05 ume] in on in AM Serum or source Plasma data Alkaline 46 - 116 U/L Normal No Sep 25 phosphata informati 2017 1:05 se on in AM [Enzymati source c data activity/ volume] in Serum or Plasma Bilirubin 0.2 - 1.0 mg/dL Normal No Sep 25 .total informati 2017 1:05 [Mass/vol on in AM ume] in source Serum or data Plasma Urea 7 - 18 mg/dL Normal No Sep 25 nitrogen informati 2017 1:05 [Mass/vol on in AM ume] in source Serum or data Plasma Calcium 8.5 - mg/dL Normal No Sep 25 [Mass/vol 10.1 informati 2017 1:05 ume] in on in AM Serum or source Plasma data Chloride 98 - 107 mmoL/L Normal No Sep 25 [Moles/vo informati 2017 1:05 lume] in on in AM Serum or source Plasma data Carbon 21.0 - mmoL/L Normal No Sep 25 dioxide, 32.0 informati 2017 1:05 total on in AM [Moles/vo source lume] in data Serum or Plasma Creatinin 0.70 - mg/dL Normal No Sep 25 e 1.30 informati 2017 1:05 [Mass/vol on in AM ume] in source Serum or data Plasma Creatinin 50 - 200 ML/MIN High No Sep 25 e renal informati 2017 1:05 clearance on in AM source predicted data by Cockcroft -Gault formula Estimated >60 ML/MIN No REFERENCE Sep 25 informati RANGE: 2017 1:05 glomerula on in >60 AM r source ML/MIN/1. filtratio data 73 SQUARE n rate METERSIf (GF this patient is -A merican, then multiply theresult by 1.210. Globulin 1.3 - 3.2 gm/dL High No Sep 25 [Mass/vol informati 2017 1:05 ume] in on in AM Serum source data Glucose 74 - 106 mg/dL Normal No Sep 25 [Mass/vol informati 2017 1:05 ume] in on in AM Serum or source Plasma data Potassium 3.5 - 5.1 mmoL/L Normal No Sep 25 informati 2016 1:05 [Moles/vo on in AM lume] in source Serum or data Plasma Sodium 136 - 145 mmoL/L Low No Sep 25 [Moles/vo informati 2017 1:05 lume] in on in AM Serum or source Plasma data Aspartate 15 - 37 U/L Normal No Sep 25 informati 2016 1:05 aminotran on in AM sferase source [Enzymati data c activity/ volume] in Serum or Plasma Alanine 12 - 78 U/L Normal No Sep 25 aminotran informati 2016 1:05 sferase on in AM [Enzymati source c data activity/ volume] in Serum or Plasma Protein 6.4 - 8.2 gm/dL Normal No Sep 25 [Mass/vol informati 2016 1:05 ume] in on in AM Serum or source Plasma data CBC W Auto Differential panel in Blood Observa Value Referen Units Interpr Notes Date tion ce etation Range Basophils 0 - 0.2 K/MM3 Normal No Sep 25 informati 2016 1:05 [#/volume on in AM ] in source Blood by data Automated count Basophils 0.1 - 2.0 % Normal No Sep 25 /100 informati 2017 1:05 leukocyte on in AM s in source Blood by data Automated count Eosinophi 0.0 - 0.4 K/mm3 Normal No Sep 25 ls informati 2016 1:05 [#/volume on in AM ] in source Blood by data Automated count Eosinophi 0.1 - % Normal No Sep 25 ls/100 12.0 informati 2016 1:05 leukocyte on in AM s in source Blood by data Automated count Granulocy 1.3 - 8.0 K/mm3 High No Sep 25 sneha informati 2016 1:05 [#/volume on in AM ] in source Blood by data Automated count Granulocy 37.0 - % Normal No Sep 25 sneha/100 80.0 informati 2016 1:05 leukocyte on in AM s in source Blood by data Automated count Hematocri 42.0 - % Normal No Sep 25 t [Volume 52.0 informati 2017 1:05 on in AM Fraction] source of Blood data Hemoglobi 14.1 - g/dL Normal No Sep 25 n 18.0 informati 2017 1:05 [Mass/vol on in AM ume] in source Blood data Lymphocyt 0.7 - 4.5 K/mm3 Normal No Sep 25 es informati 2017 1:05 [#/volume on in AM ] in source Unspecifi data ed specimen by Automated count Lymphocyt 10 - 50 % Normal No Sep 25 es informati 2017 1:05 [#/volume on in AM ] in source Unspecifi data ed specimen by Automated count Erythrocy 27 - 31.2 pg Normal No Sep 25 te mean informati 2017 1:05 corpuscul on in AM ar source hemoglobi data n [Entitic mass] Erythrocy 31.8 - g/dl Normal No Sep 25 te mean 35.4 informati 2017 1:05 corpuscul on in AM ar source hemoglobi data n concentra tion [Mass/vol ume] by Automated count Erythrocy 82.2 - fl Normal No Sep 25 te mean 97.8 informati 2017 1:05 corpuscul on in AM ar volume source [Entitic data volume] by Automated count Monocytes 0.1 - 1.0 K/mm3 Normal No Sep 25 informati 2017 1:05 [#/volume on in AM ] in source Blood by data Automated count Monocytes 1.7 - 9.3 % Normal No Sep 25 /100 informati 2017 1:05 leukocyte on in AM s in source Blood by data Automated count Platelet 7.4 - fl Normal No Sep 25 mean 10.4 informati 2017 1:05 volume on in AM [Entitic source volume] data in Blood by Automated count Platelets 142 - 424 K/mm3 Normal No Sep 25 informati 2017 1:05 [#/volume on in AM ] in source Blood data Erythrocy 4.6 - 6.2 M/mm3 Normal No Sep 25 sneha informati 2017 1:05 [#/volume on in AM ] in source Amniotic data fluid Erythrocy 11.5 - % Normal No Sep 25 te 17.5 informati 2017 1:05 distribut on in AM ion width source [Entitic data volume] by Automated count Leukocyte 4.8 - K/MM3 High No Sep 25 s 10.8 informati 2016 1:05 [#/volume on in AM ] in source Blood data Streptococcus pyogenes Ag [Presence] in Unspecified specimen Observa Value Referen Units Interpr Notes Date tion ce etation Range Strepto NEGATIV No No No No Sep 9 coccus E informa informa informa informa 2017 pyogene tion in tion in tion in tion in 6:25 AM s Ag source source source source [Presen data data data data ce] in Unspeci fied specime n
--- OUTSIDE RECORDS SUMMARY | 2017-01-24 09:54 | External Medical Summary Rpt ---
Author Author JUAN AQUINTIN Portillo, [employer]EL [employer] Organization [employer] Address Unknown Phone Unavailable [...]
--- OUTSIDE RECORDS SUMMARY | 2017-01-24 09:54 | External Medical Summary Rpt | CCD ---
Author Author , RAQUEL GARCÍA Address Unknown Phone [email or web address] Immunization Name Date Rout CVX Reac Dose Comm Prov Is Faci e tion ent ider Refu lity Give sed n Hep 08-2 8 999 Hist H136 No H136 B, 7-20 [facility] al adol Info rmat ion - Sour ce Unsp ecif ied
--- OUTSIDE RECORDS SUMMARY | 2017-01-24 09:54 | External Medical Summary Rpt | CCD ---
Author Author [employer] Organization [employer] Address Unknown Phone Unavailable Purpose Continuity of Care Document - through 2016
[2017-01-24 10:43] LABS: UTC STREP SCREEN NOT DETECTED (NOTDETECTED)
[2017-01-24] MEDS ORDERED: TESSALON PERLE100 M1 PO (11:10)
[2017-01-24] MEDS ORDERED: ZITHROMAX Z-PA250 M2 PO (11:10)
[2017-01-24 11:11] VITALS: BP 122/73
--- NOTE | 2017-01-24 11:11 | Urgent Treatment Center Report ---
History of Present Issue Date/Time Seen by Provider 01/24/17 1106 Visit Reason Pt arrived:Walked Presenting Problem:PT IS C/O COUGH, CHEST CONGESTION, AND WHEEZING Location if Accident: Onset of symptoms date/time:/ or onset unknown for:MEDICAL HX UNKNOWN Have you (or family members/close friends) recently traveled outside the [place]? N If Yes, where/when: Have you had exposure to infectious disease within the past month? TB? Other? Specify: Source patient, RN notes reviewed Exam Limitations no limitations Comment A 6-year-old male presents today for wheezing, cough, and chest congestion ALLERGIES Coded Allergies: No Known Allergies (12/10/16) Home Medications Reported Medications No Known Home Medications History Medical History General CAD? No Angina: No DE: No Hypertension? No Hyperlipidemia? No CHF? No DVT? No PE? No COPD? No Asthma? No Anemia? No GERD? No Gastric ulcers? No GI Bleed? No Hernia? No Thyroid Problems? No Hypothyroidism? No CVA? No Seizures? No Diabetes? No Renal Insuffiency? No UTI? No Stones? No BPH? No GB Disease: No Nephritic Syndrome? No Asplenia? No Hepatitis? No Sickle Cell Disease? No Arthritis? No Migraines? No Cataracts? No Glaucoma? No MRSA? No HIV? No TB? No Anxiety? No Depression? No Cancer? No More? No Immunization HX DT/Tetanus 1-4 Years Ago Surgical Hx Previous Surgery?Y Tonsils Social History Smoking Hx Smoker: Never Smoker Tobacco: No Packs/day < 1 Pack Alcohol Alcohol: Yes Review of Systems All Other Systems Reviewed and Negative Respiratory see HPI, cough, wheezing Physical Exam Vital Signs Vital Signs Date Time Temp Pulse Resp B/P Pulse O2 O2 Flow FiO2 Ox Delivery Rate 01/24 1031 98.6 88 20 122/73 96 - WBC >12,000 or <4,000 or 10% bands? 2 or more SIRS Criteria Met? B/P:122/73 MAP:89 Creatinine >2.0? UA output<0.5ml/kg/hr for 2 hrs? Platelet count >100,000? Lactate >2.0mmol/1? INR >1.2 or PTT > than 60 sec? Evidence of Organ Dysfunction? Provider documented clinical suspician of infection? Sepsis Criteria Count: 1 Sepsis Risk: General Appearance normal appearance, WD/WN, no apparent distress Eye Exam - bilateral eye normal exam, bilateral eye PERRL, bilateral eye EOMI Ear, Nose, Throat hearing grossly normal, normal ENT inspection, normal pharynx Neck normal inspection, full range of motion Respiratory Status Yes: trachea midline, chest symmetrical, non tender chest. No: respiratory distress. Lung Sounds bilateral: normal breath sounds, lungs clear. Cardiovascular normal exam, regular rate/rhythm Neurologic alert, normal exam, oriented x 3 Medical Decision Making LABS/Meds/Orders Pt receiving controlled substance in ED? No Results/Orders Laboratory Tests 01/24/17 1007: Influenza Type A Ag NOT DETECTED, Influenza Type B Ag NOT DETECTED, Group A Strep Screen NOT DETECTED Orders Procedure Date/time Status UTC STREP SCREEN 01/24 1007 Complete UTC FLU A,B 01/24 1007 Complete Departure Departure Time of Disposition 1108 Disposition DC Home or Self Care(routine) Clinical Impression Primary Impression: Acute bronchitis Qualifiers: Bronchitis organism: other organism Qualified Code: J20.8 - Acute bronchitis due to other specified organisms Condition STABLE Patient Instructions Acute Bronchitis Additional Instructions Antibiotics as ordered Follow-up with primary care this week if no improvement Return or be seen in the ER if symptoms worsen or do not improve Discharge Counseling Counseled pt/family regarding diagnosis, test results, medications/RX, home care, follow up needs Prescriptions Current Visit Scripts Azithromycin (Zithromax) 250 MG PO DAILY #6 TAB USE DIRECTED. Benzonatate (Tessalon Perle) 100 MG PO BIDP PRN COUGH 3 Days at 1110
== END 2017-01-24 11:11 | disposition home or self-care (01) ==
LOC: UTC 09:48
PROVIDERS: Nurse Practitioner Family
DX: J20.8 Acute bronchitis due to other specified organisms (principal)

== ENCOUNTER 2017-02-20 20:54 | Emergency (ER) | payer MEDICAID ==
[~2017-02-20] VITALS: Ht 177.8 cm; Wt 124.7 kg
[~2017-02-20 20:54] MED LIST changes: +TESSALON PERLE100 M1 PO; +ZITHROMAX Z-PA250 M2 PO
--- OUTSIDE RECORDS SUMMARY | 2017-02-20 21:01 | External Medical Summary Rpt | CCD ---
Author Author , RAQUEL Organization RAQUEL Address Unknown Phone Care Team Providers Care Director Of Marketing Operations Name Role Phone WILKINS, WILKINS Unavailable Unavailable [facility] Unavailable Unavailable [facility] EBBITT, EBBITT Unavailable Unavailable [facility] Unavailable Unavailable [facility], [facility], Unavailable Unavailable [facility], Unavailable Unavailable [facility] Unavailable Unavailable [facility], [facility] HERNANDEZ, HERNANDEZ Unavailable Unavailable HERNANDEZ, HERNANDEZ Unavailable Unavailable [facility], Unavailable Unavailable PLLC, [facility] LAYA, LAYA Unavailable Unavailable RASHMI, RASHMI Unavailable Unavailable Purpose Continuity of Care Document - 05-22-2015 through 2016 Problems Code Diagnosis DOS Provider Status [id number] CUTANEOUS 01-06-2017 [facility] ABSCESS OF PHYSICIANS PERINEUM GROUP H45157 ACUTE & 12-31-2016 [facility] SUBACUTE PHYSICIANS ALLERGIC OM GROUP RECURRENT RT EAR H6903 PATULOUS 12-31-2016 HERNANDEZ EUSTACHIAN TUBE BILATERAL H7441 POLYP OF 12-31-2016 [facility] RIGHT PHYSICIANS MIDDLE EAR GROUP J3089 OTHER 12-31-2016 [facility] ALLERGIC PHYSICIANS RHINITIS GROUP Z4801 ENCOUNTER 12-11-2016 [facility] MADELEINE INC SURGICAL WOUND DRESSING K610 ANAL 12-10-2016 [facility] ABSCESS ANESTH OF THE [facility]UE K602 ANAL 12-08-2016 [facility] FISSURE PHYSICIANS UNSPECIFIED GROUP K44851 ENCOUNTER 12-08-2016 [facility] PREPROCEDUR INC AL LABORATORY EXAM K625 HEMORRHAGE 12-06-2016 [place] OF ANUS AND MEDICAL RECTUM IMAGING ASS H6693 OTITIS 11-24-2016 [facility] MEDIA [facility] UNSPECIFIED INC BILATERAL M545 LOW BACK 11-24-2016 [facility]IN [facility] R05 COUGH 11-24-2016 [facility] INC [id number] ACUTE 11-22-2016 [facility]ATIVE [facility], OM W/O PLLC RUPT EAR DRUM RT EAR J029 ACUTE 11-22-2016 [facility] PHARYNGITIS [facility], [facility] UNSPECIFIED 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[facility] TUNNEL [facility], SYNDROME PLLC BILATERAL UPPER LIMBS Z23 ENCOUNTER 08-01-2016 [facility] FOR PHYSICIAN IMMUNIZATIO GROUP N 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[facility] TUNNEL [facility], SYNDROME PLLC RIGHT UPPER LIMB M6740 GANGLION 07-19-2016 [facility] UNSPECIFIED [facility], SITE PLLC [id number] GANGLION 07-19-2016 [facility]ST [facility] INC K529 NONINFECTIV 04-14-2016 [facility] E [facility], GASTROENTER PLLC ITIS & COLITIS UNS R109 UNSPECIFIED 04-14-2016 [facility] ABDOMINAL [facility], PAIN PLLC Z720 TOBACCO USE 02-16-2016 [facility] INC J0110 ACUTE 01-29-2016 [facility] FRONTAL PHYSICIAN SINUSITIS GROUP UNSPECIFIED J189 PNEUMONIA 12-08-2015 [facility] UNSPECIFIED [facility], ORGANISM PLLC B349 VIRAL 08-22-2015 [facility] INFECTION [facility], UNSPECIFIED PLLC J349 UNSPECIFIED 08-22-2015 [facility] DISORDER [facility], OF NOSE AND PLLC NASAL SINUSES R0981 NASAL 08-22-2015 [facility] INC J209 ACUTE 05-22-2015 [facility]CH[facility]IS [facility] UNSPECIFIED INC J40 BRONCHITIS 05-22-2015 [facility] NOT [facility], SPECIFIED PLLC ACUTE OR CHRONIC R509 FEVER 05-22-2015 [place] UNSPECIFIED [facility]ICAL IM[facility]ING ASS 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 G56.00 CARPAL TUNNEL SYNDROME, UNSPECIFIED UPPER LIMB H66.90 OTITIS MEDIA, UNSPECIFIED , UNSPECIFIED EAR J02.9 ACUTE PHARYNGITIS , UNSPECIFIED J18.9 PNEUMONIA, UNSPECIFIED ORGANISM J40 BRONCHITIS, NOT SPECIFIED ACUTE OR CHRONIC K60.2 ANAL FISSURE, UNSPECIFIED L02.91 CUTANEOUS ABSCESS, UNSPECIFIED M25.462 EFFUSION, LEFT KNEE M67.40 GANGLION, UNSPECIFIED SITE S83.92XA SPRAIN OF UNSPECIFIED SITE OF LEFT KNEE, INITIAL ENCOUNTER Medications Na ND Rx Da Fi Fi Am Da Di Ph RX Ph St me C No te ll ll ou ys ag ar # ys at rm s nt no ma ic us Or Da si cy ia de te s n re d LI 52 10 11 35 18 00 WA Ac DO 56 -1 -1 .4 00 L- ti CA 50 9- 7- 39 07 MA ve IN 00 20 20 51 RT E 81 17 17 21 5% 4 19 PH AR OI MA NT CY ME NT #5 91 HY 00 10 11 [address] 40 -0 -0 .0 00 L- ti OC 60 5- 3- 00 02 MA ve OD 12 20 20 24 RT ON 30 17 17 22 -A 1 04 PH CE AR TA MA OH CY NO PH #5 EN 91 5- 32 5 OX 00 09 10 27 4 00 SC Ac YC 40 -2 -2 .0 00 L- ti OD 60 8- 7- 00 02 MA ve ON 51 20 20 24 RT E- 20 17 17 21 AC 1 11 PH ET AR AM MA IN CY OP HE #5 N 91 5- 32 5 TR 00 09 10 12 3 00 SC Ac AM 37 -2 -2 .0 00 L- ti AD 84 5- 0- 00 04 MA ve OL 15 20 20 53 RT 10 17 17 22 HC 5 69 PH L AR 50 MA CY MG #5 TA 91 BL ET LI 52 09 10 35 18 00 SC Ac DO 56 -2 -2 .4 00 L- ti CA 50 6- 0- 39 07 MA ve IN 00 20 20 51 RT E 81 17 17 21 5% 4 19 PH AR OI MA NT CY ME NT #5 91 IN 10 09 10 28 15 00 SC Ac OC 63 -2 -2 .3 00 L- ti TO 10 6- 0- 50 07 MA ve SO 40 20 20 51 RT L- 70 17 17 21 HC 1 20 PH AR 2. MA 5% CY CR #5 EA 91 M AM 00 09 10 20 10 00 SC Ac OX 78 -2 -2 .0 00 L- ti -C 11 5- 0- 00 07 MA ve LA 85 20 20 51 RT V 22 17 17 15 87 0 92 PH 5- AR 12 MA 5 CY MG #5 TA 91 BL ET MO 57 09 10 30 30 00 SC Ac NT 23 -1 -1 .0 00 L- ti EL 70 4- 3- 00 07 MA ve UK 25 20 20 50 RT 53 17 17 96 T 0 65 PH SO AR D MA 10 CY MG #5 91 TA BL ET CE 68 09 10 21 7 00 SC Ac PH 18 -0 -0 .0 00 L- ti AL 00 9- 6- 00 07 MA ve EX 12 20 20 50 RT IN 20 17 17 86 2 35 PH 50 AR 0 MA MG CY CA #5 PS 91 UL E FL 60 09 10 16 30 00 WA Ac UT 43 -1 -0 .0 00 L- ti IC 20 2- 6- 00 07 MA ve 26 20 20 50 RT ON 41 17 17 91 E 5 53 PH IN AR OP MA CY 50 #5 MC 91 G SP RA Y BR 60 09 10 24 6 00 WA Ac OM 43 -1 -0 0. 00 L- ti PH 20 2- 6- 00 07 MA ve EN 27 20 20 0 50 RT IR 51 17 17 91 -P 6 54 PH SE AR UD MA OE CY PH ED #5 -D 91 M SY R NA 65 09 10 14 7 00 WA Ac IN 16 -1 -0 .0 00 L- ti OX 20 2- 6- 00 07 MA ve EN 19 20 20 50 RT 01 17 17 91 50 1 56 PH 0 AR MG MA CY TA BL #5 ET 91 IN 00 09 10 10 5 00 SC Ac ED 14 -0 -0 .0 00 L- ti NI 39 9- 6- 00 07 MA ve SO 73 20 20 50 RT NE 80 17 17 86 5 36 PH 20 AR MA MG CY TA #5 BL 91 ET OF 50 09 10 5. 7 00 SC Ac LO 38 -1 -0 00 00 L- ti XA 30 2- 6- 0 07 MA ve CI 02 20 20 50 RT N 50 17 17 91 0. 5 84 PH 3% AR MA EA CY R DR #5 OP 91 S AM 00 09 10 20 10 00 SC Ac OX 14 -1 -0 .0 00 L- ti IC 39 2- 6- 00 07 MA ve IL 95 20 20 50 RT LI 10 17 17 91 N 1 51 PH 87 AR 5 MA MG CY TA #5 BL 91 ET Results Labs Lab Lab Date Result Refere Interp Status Commen Order Detail nces retati t Range on Rapid influenza A and B antigen detectio (01-24-2017 10:07) Influen NOT NOT complet za A ag 017 DETECTE DETECTD ed QL 10:07 D NOT DETECTE D L INFLUEN NOT NOT complet ZA B 017 DETECTE DETECTD ed ANTIGEN 10:07 D Comment: LOT # @[id number] EXP DATE @2018-06-12 Screening group A Streptococcus antigen (01-24-2017 10:07) Screeni 11-12-2 NOT NOTDETE complet ng 017 DETECTE CTED ed group A 10:07 D NOT DETECTE Strepto D L coccus antigen Comment: LOT # @[id number] EXP DATE @2018-11-15 Procedures Procedure DOS Code Location Performer Comment COMPRE 92949 DAVID HERNANDEZ AUDIOMETR 7 Y THRESHOLD EVAL SP RECOGNIJ TYMPANOME 27936 DAVID HERNANDEZ TRY 7 DISTORT 58097 DAVID HERNANDEZ PRODUCT 7 EVOKED OTOACOUST IC EMISNS LIMITD ANESTHESI 91607 [facility] A 7 ANESTH ANORECTAL OF THE BLUE PROCEDURE INCISION 65912 [facility] RASHMI & 7 PHYSICIAN DRAINAGE S GROUP ABSCESS COMPLICAT ED/[place] [address] [facility] ABDOMEN & 7 MEDICAL PELVIS IMAGING W/CONTRAS ASS T MATERIAL FINAL G9551 [place] WILKINS REPR ABD 7 MEDICAL IMAG STS IMAGING W/O ASS INCIDNT FND LES NTD: FINAL G9638 [facility] REPORTS 7 MEDICAL W/O DOC IMAGING 1/MORE ASS DOSE REDUCTION TECH Encounters Encounter Start End Date Code Location Performer Type Date OFFICE 23329 [facility] RASHMI OUTPATIEN 7 7 PHYSICIAN T VISIT 5 S GROUP MINUTES OFFICE 90313 [facility] HERNANDEZ OUTPATIEN 7 7 PHYSICIAN T VISIT S GROUP 15 MINUTES [facility] OUT[facility] OFFICE 37802 [facility] T VISIT 5 INC MINUTES [facility] OFFICE 78387 [facility] T VISIT 5 INC MINUTES [facility] 7 [facility] - 7 7 [facility] [address] [facility] - 6 6 [facility] 6 [facility]
--- OUTSIDE RECORDS SUMMARY | 2017-02-20 21:01 | External Medical Summary Rpt | CCD ---
Author Author , RAQUEL Organization RAQUEL Address Unknown Phone [email or web address] Care Team Providers Care Carpet Installation Specialist Name Role Phone WILKINS, WILKINS Unavailable Unavailable [facility] Unavailable Unavailable [facility] EBBITT, EBBITT Unavailable Unavailable [facility] Unavailable Unavailable INC, [facility], Unavailable Unavailable [facility], Unavailable Unavailable [facility] Unavailable Unavailable [facility], [facility] HERNANDEZ, HERNANDEZ Unavailable Unavailable HERNANDEZ, HERNANDEZ Unavailable Unavailable [facility], Unavailable Unavailable PLLC, [facility] LAYA, LAYA Unavailable Unavailable RASHMI, RASHMI Unavailable Unavailable Purpose Continuity of Care Document - 05-22-2015 through 2016 Problems Code Diagnosis DOS Provider Status [id number] CUTANEOUS 01-06-2017 [facility] ABSCESS OF PHYSICIANS PERINEUM GROUP D52262 ACUTE & 12-31-2016 [facility] SUBACUTE PHYSICIANS ALLERGIC OM GROUP RECURRENT RT EAR H6903 PATULOUS 12-31-2016 HERNANDEZ EUSTACHIAN TUBE BILATERAL H7441 POLYP OF 12-31-2016 [facility] RIGHT PHYSICIANS MIDDLE EAR GROUP J3089 OTHER 12-31-2016 [facility] ALLERGIC PHYSICIANS RHINITIS GROUP Z4801 ENCOUNTER 12-11-2016 [facility] MADELEINE INC SURGICAL WOUND DRESSING K610 ANAL 12-10-2016 [facility] ABSCESS ANESTH OF THE BLUE K602 ANAL 12-08-2016 [facility] FISSURE PHYSICIANS UNSPECIFIED GROUP O44863 ENCOUNTER 12-08-2016 [facility] PREPROCEDUR INC AL LABORATORY EXAM K625 HEMORRHAGE 12-06-2016 [place] OF ANUS AND MEDICAL RECTUM IMAGING ASS H6693 OTITIS 11-24-2016 [facility] UNSPECIFIED INC BILATERAL M545 LOW BACK 11-24-2016 [facility] INC R05 COUGH 11-24-2016 [facility] INC D20283 ACUTE 11-22-2016 [facility], OM W/O PLLC RUPT EAR DRUM RT EAR J029 ACUTE 11-22-2016 [facility] PH[facility]IS [facility], PLL[facility] UNSPECIFIED 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[facility] TUNNEL [facility], SYNDROME PLLC BILATERAL UPPER LIMBS Z23 ENCOUNTER 08-01-2016 [facility] FOR PHYSICIAN IMMUNIZATIO GROUP N 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[facility] T[facility]EL [facility], SYNDROME PLLC RIGHT UPPER LIMB M6740 GANGLION 07-19-2016 [facility] UNSPECIFIED [facility], SITE PLLC D85242 GANGLION 07-19-2016 [facility] INC K529 NONINFECTIV 04-14-2016 [facility], GASTROENTER PLLC ITIS & COLITIS UNS R109 UNSPECIFIED 04-14-2016 [facility] ABDOMINAL [facility], PAIN PLLC Z720 TOBACCO USE 02-16-2016 [facility] INC J0110 ACUTE 01-29-2016 [facility] FRONTAL PHYSICIAN SINUSITIS GROUP UNSPECIFIED J189 PNEUMONIA [...] PLLC ACUTE OR CHRONIC R509 FEVER 05-22-2015 [place] [facility] B42962 PERSONAL 05-22-2015 [facility] [...] 1 04 PH CE AR TA MA WY CY NO PH #5 EN 91 5- 32 5 OX 00 09 10 27 4 00 [place] Ac YC 40 -2 -2 .0 00 L- ti OD 60 8- 7- 00 02 MA ve ON 51 20 20 24 RT E- 20 17 17 21 AC 1 11 PH ET AR AM MA IN CY OP HE #5 N 91 5- 32 5 TR 00 09 10 12 3 00 NH Ac AM 37 -2 -2 .0 00 L- ti AD 84 5- 0- 00 04 MA ve OL 15 20 20 53 RT 10 17 17 22 HC 5 69 PH L AR 50 MA CY MG #5 TA 91 BL ET LI 52 09 10 35 18 00 NH Ac DO 56 -2 -2 .4 00 L- ti CA 50 6- 0- 39 07 MA ve IN 00 20 20 51 RT E 81 17 17 21 5% 4 19 PH AR OI MA NT CY ME NT #5 91 NJ 10 09 10 28 15 00 NH Ac OC 63 -2 -2 .3 00 L- ti TO 10 6- 0- 50 07 MA ve SO 40 20 20 51 RT L- 70 17 17 21 HC 1 20 PH AR 2. MA 5% CY CR #5 EA 91 M AM 00 09 10 20 10 00 NH Ac OX 78 -2 -2 .0 00 L- ti -C 11 5- 0- 00 07 MA ve LA 85 20 20 51 RT V 22 17 17 15 87 0 92 PH 5- AR 12 MA 5 CY MG #5 TA 91 BL ET MO 57 09 10 30 30 00 NH Ac NT 23 -1 -1 .0 00 L- ti EL 70 4- 3- 00 07 MA ve UK 25 20 20 50 RT 53 17 17 96 T 0 65 PH SO AR D MA 10 CY MG #5 91 TA BL ET CE 68 09 10 21 7 00 NH Ac PH 18 -0 -0 .0 00 [...] 17 17 91 E 5 53 PH NJ AR OP MA CY 50 #5 MC [...] 09 10 14 7 00 WA Ac NJ 16 -1 -0 .0 00 L- ti OX 20 2- 6- 00 07 MA ve EN 19 20 20 50 RT 01 17 17 91 50 1 56 PH 0 AR MG MA CY TA BL #5 ET 91 [place] 00 09 10 10 5 00 NH Ac ED 14 -0 -0 .0 00 L- ti NI 39 9- 6- 00 07 MA ve SO 73 20 20 50 RT NE 80 17 17 86 5 36 PH 20 AR MA MG CY TA #5 BL 91 ET OF 50 09 10 5. 7 00 NH Ac LO 38 -1 -0 00 00 L- ti XA 30 2- 6- 0 07 MA ve CI 02 20 20 50 RT N 50 17 17 91 0. 5 84 PH 3% AR MA EA CY R DR #5 OP 91 S AM 00 09 10 20 10 00 NH Ac OX 14 -1 -0 .0 00 [...] ed ANTIGEN 10:07 D Comment: LOT # @[id number] EXP DATE @2018-06-12 Screening group A Streptococcus antigen (01-24-2017 10:07) Screeni 11-12-2 NOT NOTDETE complet ng 017 DETECTE CTED ed group A 10:07 D NOT DETECTE Strepto D L coccus antigen Comment: LOT # @[id number] EXP DATE @2018-11-15 Procedures Procedure DOS Code Location Performer Comment COMPRE 44321 DAVID HERNANDEZ AUDIOMETR 7 Y THRESHOLD EVAL SP RECOGNIJ TYMPANOME 51395 DAVID HERNANDEZ TRY 7 DISTORT 82425 DAVID HERNANDEZ PRODUCT 7 EVOKED OTOACOUST IC EMISNS LIMITD ANESTHESI 65570 [facility] A 7 ANESTH ANORECTAL OF THE BLUE PROCEDURE INCISION 05695 [facility] RASMHI & 7 PHYSICIAN DRAINAGE S GROUP ABSCESS COMPLICAT ED/[place] [address] [facility] ABDOMEN & 7 MEDICAL PELVIS IMAGING W/CONTRAS ASS T MATERIAL FINAL G9551 [place] WILK[facility] REPR ABD 7 MEDICAL IMAG STS IMAGING W/O ASS INCIDNT FND LES NTD: FINAL G9638 [facility] REPORTS 7 MEDICAL W/O DOC IMAGING 1/MORE ASS DOSE REDUCTION TECH Encounters Encounter Start End Date Code Location Performer Type Date OFFICE 35411 [facility] RASHMI OUTPATIEN 7 7 PHYSICIAN T VISIT 5 S GROUP MINUTES OFFICE 89790 [facility] HERNANDEZ OUTPATIEN 7 7 PHYSICIAN T VISIT S GROUP 15 MINUTES [facility] OUT[facility] OFFICE 34654 [facility] T VISIT 5 INC MINUTES [facility] OFFICE 71294 [facility] T VISIT 5 INC MINUTES [facility] 7 [facility] 7 7 [facility] 6 6 [facility] [facility] [address] [facility] 6 6 [facility] 6 6 [facility]
[2017-02-20] MEDS ORDERED: MONTELUKAST SOD10 MG PO (21:03)
--- OUTSIDE RECORDS SUMMARY | 2017-02-20 21:03 | External Medical Summary Rpt | CCD ---
Author Author , RAQUEL GARCÍA Address Unknown Phone [email or web address] Care Team Providers Care Crate Icer Name Role Phone WILKINS, WILKINS Unavailable Unavailable [facility] Unavailable Unavailable [facility] EBBITT, EBBITT Unavailable Unavailable [facility] Unavailable Un[facility], [facility], Unavailable Unavailable [facility], Unavailable Unavailable [facility] Unavailable Unavailable [facility], [facility] HERNANDEZ, HERNANDEZ Unavailable Unavailable HERNANDEZ, HERNANDEZ Unavailable Unavailable [facility], Unavailable Unavailable PLLC, [facility] LAYA, LAYA Unavailable Unavailable RASHMI, RASHMI Unavailable Unavailable Purpose Continuity of Care Document - 05-22-2015 through 2016 Problems Code Diagnosis DOS Provider Status [id number] CUTANEOUS 01-06-2017 [facility] ABSCESS OF PHYSICIANS PERINEUM GROUP [id number] ACUTE & 12-31-2016 [facility] SUBACUTE PHYSICIANS ALLERGIC OM GROUP RECURRENT RT EAR H6903 PATULOUS 12-31-2016 HERNAN[facility]Z EUSTACHIAN TUBE BILATERAL H7441 POLYP OF 12-31-2016 [facility] RIGHT PHYSICIANS MIDDLE EAR GROUP J3089 OTHER 12-31-2016 [facility] ALLERGIC PHYSICIANS RHINITIS GROUP Z4801 ENCOUNTER 12-11-2016 [facility] MADELEINE INC SURGICAL WOUND DRESSING K610 ANAL 12-10-2016 [facility] ABSCESS ANESTH OF THE BLUE K602 ANAL 12-08-2016 [facility] FISSURE PHYSICIANS UNSPECIFIED GROUP M99000 ENCOUNTER 12-08-2016 [facility] PREPROCEDUR INC AL LABORATORY EXAM K625 HEMORRHAGE 12-06-2016 [facility] ANUS AND MEDICAL RECTUM IMAGING ASS H6693 OTITIS 11-24-2016 [facility]IA [facility] UNSPECIFIED INC BILATERAL M545 LOW BACK 11-24-2016 [facility] INC R05 COUGH 11-24-2016 [facility] INC M43179 ACUTE 11-22-2016 [facility] OM W/O PLLC RUPT EAR DRUM RT EAR J029 ACUTE 11-22-2016 [facility] UNSPECIFIED 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[facility], SYNDROME PLLC BILATERAL UPPER LIMBS Z23 ENCOUNTER 08-01-2016 [facility] FOR PHYSICIAN IMMUNIZATIO GROUP N 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[facility] SYNDROME PLLC RIGHT UPPER LIMB M6740 GANGLION 07-19-2016 [facility] UNSPECIFIED [facility], SITE PLLC R20009 GANGLION 07-19-2016 [facility] K529 NONINFECTIV 04-14-2016 [facility], GASTROENTER PLLC ITIS & COLITIS UNS R109 UNSPECIFIED 04-14-2016 [facility] PAIN PLLC Z720 TOBACCO USE 02-16-2016 [facility] INC J0110 ACUTE 01-29-2016 [facility] FRONTAL PHYSICIAN SINUSITIS GROUP UNSPECIFIED J189 PNEUMONIA [...] PLLC ACUTE OR CHRONIC R509 FEVER 05-22-2015 [facility] [facility] [id number] 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 Medications Na ND Rx Da Fi Fi Am Da Di Ph RX Ph St me C No te ll ll ou ys ag ar # ys at rm s nt no ma ic us Or Da si cy ia de te s n re d LI 52 10 11 35 18 00 PR Ac DO 56 -1 -1 .4 00 L- ti CA 50 9- 7- 39 07 MA ve IN 00 20 20 51 RT E 81 17 17 21 5% 4 19 PH AR OI MA NT CY ME NT #5 91 HY 00 10 11 [address] 40 -0 -0 .0 00 L- ti OC 60 5- 3- 00 02 MA ve OD 12 20 20 24 RT ON 30 17 17 22 -A 1 04 PH CE AR TA MA DC CY NO PH #5 EN 91 5- 32 5 OX 00 09 10 27 4 00 PR Ac YC 40 -2 -2 .0 00 L- ti OD 60 8- 7- 00 02 MA ve ON 51 20 20 24 RT E- 20 17 17 21 AC 1 11 PH ET AR AM MA IN CY OP HE #5 N 91 5- 32 5 AM 00 09 10 20 10 00 PR Ac OX 78 -2 -2 .0 00 L- ti -C 11 5- 0- 00 07 MA ve LA 85 20 20 51 RT V 22 17 17 15 87 0 92 PH 5- AR 12 MA 5 CY MG #5 TA 91 BL ET TR 00 09 10 12 3 00 PR Ac AM 37 -2 -2 .0 00 L- ti AD 84 5- 0- 00 04 MA ve OL 15 20 20 53 RT 10 17 17 22 HC 5 69 PH L AR 50 MA CY MG #5 TA 91 BL ET LI 52 09 10 35 18 00 PR Ac DO 56 -2 -2 .4 00 L- ti CA 50 6- 0- 39 07 MA ve IN 00 20 20 51 RT E 81 17 17 21 5% 4 19 PH AR OI MA NT CY ME NT #5 91 OK 10 09 10 28 15 00 PR Ac OC 63 -2 -2 .3 00 L- ti TO 10 6- 0- 50 07 MA ve SO 40 20 20 51 RT L- 70 17 17 21 HC 1 20 PH AR 2. MA 5% CY CR #5 EA 91 M MO 57 09 10 30 30 00 PR Ac NT 23 -1 -1 .0 00 L- ti EL 70 4- 3- 00 07 MA ve UK 25 20 20 50 RT 53 17 17 96 T 0 65 PH SO AR D MA 10 CY MG #5 91 TA BL ET OF 50 09 10 5. 7 00 PR Ac LO 38 -1 -0 00 00 L- ti XA 30 2- 6- 0 07 MA ve CI 02 20 20 50 RT N 50 17 17 91 0. 5 84 PH 3% AR MA EA CY R DR #5 OP 91 S CE 68 09 10 21 7 00 PR Ac PH 18 -0 -0 .0 00 L- ti AL 00 9- 6- 00 07 MA ve EX 12 20 20 50 RT IN 20 17 17 86 2 35 PH 50 AR 0 MA MG CY CA #5 PS 91 UL E OK 00 09 10 10 5 00 PR Ac ED 14 -0 -0 .0 00 L- ti NI 39 9- 6- 00 07 MA ve SO 73 20 20 50 RT NE 80 17 17 86 5 36 PH 20 AR MA MG CY TA #5 BL 91 ET AM 00 09 10 20 10 00 [place] Ac OX 14 -1 -0 .0 00 L- ti IC 39 2- 6- 00 07 MA ve IL 95 20 20 50 RT LI 10 17 17 91 N 1 51 PH 87 AR 5 MA MG CY TA #5 BL 91 ET FL 60 09 10 16 30 00 WA Ac UT 43 -1 -0 .0 00 L- ti IC 20 2- 6- 00 07 MA ve 26 20 20 50 RT ON 41 17 17 91 E 5 53 PH OK AR OP MA CY 50 #5 MC [...] 09 10 14 7 00 WA Ac OK 16 -1 -0 .0 00 L- ti OX 20 2- 6- 00 07 MA ve EN 19 20 20 50 RT 01 17 17 91 50 1 56 PH 0 AR MG MA CY TA BL #5 ET 91 Procedures Procedure DOS Code Location Performer Comment COMPRE 93530 DAVID HERNANDEZ AUDIOMETR 7 Y THRESHOLD EVAL SP RECOGNIJ TYMPANOME 91586 HERNANDEZ HERNANDEZ TRY 7 DISTORT 57009 DAVID HERNANDEZ PRODUCT 7 EVOKED OTOACOUST IC EMISNS LIMITD ANESTHESI 33835 COMMUNITY LAYA A 7 ANESTH ANORECTAL OF THE BLUE PROCEDURE INCISION 03372 [facility] RASHMI & 7 PHYSICIAN DRAINAGE S GROUP ABSCESS COMPLICAT ED/[place] [address] [facility] [place] ABDOMEN & 7 MEDICAL PELVIS IMAGING W/CONTRAS ASS T MATERIAL FINAL G9551 NIESHA WILKINS REPR ABD 7 MEDICAL IMAG STS IMAGING W/O ASS INCIDNT FND LES NTD: FINAL G9638 [facility] [place] [facility] REPORTS 7 MEDICAL W/O DOC IMAGING 1/MORE ASS DOSE REDUCTION TECH Encounters Encounter Start End Date Code Location Performer Type Date OFFICE 99401 [facility] RASHMI OUTPATIEN 7 7 PHYSICIAN T VISIT 5 S GROUP MINUTES OFFICE 00750 [facility] HERNANDEZ OUTPATIEN 7 7 PHYSICIAN T VISIT S GROUP 15 MINUTES OFFICE 14803 [facility] OUT[facility] INC T OFFICE 28830 [facility] T VISIT [facility] INC [facility]ES [facility] OUTPATIEN INC T OFFICE 48545 [facility] EBBITT OUTPATIEN 6 6 PHYSICIAN T NEW 20 GROUP MINUTES [facility]
--- OUTSIDE RECORDS SUMMARY | 2017-02-20 21:03 | External Medical Summary Rpt | CCD ---
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 Name Role Phone WILKINS, WILKINS Unavailable Unavailable [facility] Unavailable Unavailable [facility] EBBITT, EBBITT Unavailable Unavailable [facility] Unavailable Unavailable INC, [facility], Unavailable Unavailable [facility], Unavailable Unavailable [facility] Unavailable Unavailable [facility], [facility] HERNANDEZ, HERNANDEZ Unavailable Unavailable HERNANDEZ, HERNANDEZ Unavailable Unavailable [facility], Unavailable Unavailable PLLC, [facility] LAYA, LAYA Unavailable Unavailable RASHMI, RASHMI Unavailable Unavailable Purpose Continuity of Care Document - 05-22-2015 through 2016 Problems Code Diagnosis DOS Provider Status [id number] CUTANEOUS 01-06-2017 [facility] ABSCESS OF PHYSICIANS PERINEUM GROUP [id number] ACUTE & 12-31-2016 [facility] SUBACUTE PHYSICIANS ALLERGIC OM GROUP RECURRENT RT EAR H6903 PATULOUS 12-31-2016 HERNANDEZ EUSTACHIAN TUBE BILATERAL 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 POLYP OF 12-31-2016 [facility] RIGHT PHYSICIANS MIDDLE EAR GROUP J3089 OTHER 12-31-2016 [facility] ALLERGIC PHYSICIANS RHINITIS GROUP Z4801 ENCOUNTER 12-11-2016 [facility] MADELEINE INC SURGICAL WOUND DRESSING K610 ANAL 12-10-2016 [facility] ABSCESS ANESTH OF THE BLUE K602 ANAL 12-08-2016 [facility] FISSURE PHYSICIANS UNSPECIFIED GROUP [id number] ENCOUNTER 12-08-2016 [facility] PREPROCEDUR INC AL LABORATORY EXAM K625 HEMORRHAGE 12-06-2016 [facility] ANUS AND MEDICAL RECTUM IMAGING ASS H6693 OTITIS 11-24-2016 [facility] UNSPECIFIED INC BILATERAL M545 LOW BACK 11-24-2016 [facility] INC R05 COUGH 11-24-2016 [facility] INC J56032 ACUTE 11-22-2016 [facility] OM W/O PLLC RUPT EAR DRUM RT EAR J029 ACUTE 11-22-2016 [facility] UNSPECIFIED 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[facility], SYNDROME PLLC BILATERAL UPPER LIMBS Z23 ENCOUNTER 08-01-2016 [facility] FOR PHYSICIAN IMMUNIZATIO GROUP N 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[facility], SYNDROME PLLC RIGHT UPPER LIMB M6740 GANGLION 07-19-2016 [facility]PEC[facility]IED [facility], SITE PLLC T38099 GANGLION 07-19-2016 [facility] K529 NONINFECTIV 04-14-2016 [facility] GASTROENTER PLLC ITIS & COLITIS UNS R109 UNSPECIFIED 04-14-2016 [facility] PAIN PLLC Z720 TOBACCO USE 02-16-2016 [facility] INC J0110 ACUTE 01-29-2016 [facility] FRONTAL PHYSICIAN SINUSITIS GROUP UNSPECIFIED J189 [...] PLLC ACUTE OR CHRONIC R509 FEVER 05-22-2015 [facility] [facility] [id number] 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 Medications Na ND Rx Da Fi Fi Am Da Di Ph RX Ph St me C No te ll ll ou ys ag ar # ys at rm s nt no ma ic us Or Da si cy ia de te s n re d LI 52 10 11 35 18 00 [place] Ac DO 56 -1 -1 .4 00 L- ti CA 50 9- 7- 39 07 MA ve IN 00 20 20 51 RT E 81 17 17 21 5% 4 19 PH AR OI MA NT CY ME NT #5 91 HY 00 10 11 [address] 40 -0 -0 .0 00 L- ti OC 60 5- 3- 00 02 MA ve OD 12 20 20 24 RT ON 30 17 17 22 -A 1 04 PH CE AR TA MA LA CY NO PH #5 EN 91 5- 32 5 OX 00 09 10 27 4 00 [place] Ac YC 40 -2 -2 .0 00 L- ti OD 60 8- 7- 00 02 MA ve ON 51 20 20 24 RT E- 20 17 17 21 AC 1 11 PH ET AR AM MA IN CY OP HE #5 N 91 5- 32 5 AM 00 09 10 20 10 00 [place] Ac OX 78 -2 -2 .0 00 L- ti -C 11 5- 0- 00 07 MA ve LA 85 20 20 51 RT V 22 17 17 15 87 0 92 PH 5- AR 12 MA 5 CY MG #5 TA 91 BL ET TR 00 09 10 12 3 00 [place] Ac AM 37 -2 -2 .0 00 L- ti AD 84 5- 0- 00 04 MA ve OL 15 20 20 53 RT 10 17 17 22 HC 5 69 PH L AR 50 MA CY MG #5 TA 91 BL ET LI 52 09 10 35 18 00 [place] Ac DO 56 -2 -2 .4 00 L- ti CA 50 6- 0- 39 07 MA ve IN 00 20 20 51 RT E 81 17 17 21 5% 4 19 PH AR OI MA NT CY ME NT #5 91 NM 10 09 10 28 15 00 [place] Ac OC 63 -2 -2 .3 00 L- ti TO 10 6- 0- 50 07 MA ve SO 40 20 20 51 RT L- 70 17 17 21 HC 1 20 PH AR 2. MA 5% CY CR #5 EA 91 M MO 57 09 10 30 30 00 [place] Ac NT 23 -1 -1 .0 00 L- ti EL 70 4- 3- 00 07 MA ve UK 25 20 20 50 RT 53 17 17 96 T 0 65 PH SO AR D MA 10 CY MG #5 91 TA BL ET OF 50 09 10 5. 7 00 [place] Ac LO 38 -1 -0 00 00 L- ti XA 30 2- 6- 0 07 MA ve CI 02 20 20 50 RT N 50 17 17 91 0. 5 84 PH 3% AR MA EA CY R DR #5 OP [address] 68 09 10 21 7 00 [place] Ac PH 18 -0 -0 .0 00 L- ti AL 00 9- 6- 00 07 MA ve EX 12 20 20 50 RT IN 20 17 17 86 2 35 PH 50 AR 0 MA MG CY CA #5 PS 91 UL E NM 00 09 10 10 5 00 [place] Ac ED 14 -0 -0 .0 00 [...] 17 17 91 E 5 53 PH NM AR OP MA CY 50 #5 MC [...] 09 10 14 7 00 [place] Ac NM 16 -1 -0 .0 00 L- ti OX 20 2- 6- 00 07 MA ve EN 19 20 20 50 RT 01 17 17 91 50 1 56 PH 0 AR MG MA CY TA BL #5 ET 91 Procedures Procedure DOS Code Location Performer Comment COMPRE 29919 DAVID HERNANDEZ AUDIOMETR 7 Y THRESHOLD EVAL SP RECOGNIJ TYMPANOME 55122 HERNANDEZ HERNANDEZ TRY 7 DISTORT 48501 DAVID HERNANDEZ PRODUCT 7 EVOKED OTOACOUST IC EMISNS LIMITD ANESTHESI 17167 COMMUNITY LAYA A 7 ANESTH ANORECTAL OF THE BLUE PROCEDURE INCISION 39652 [facility] RASHMI & 7 PHYSICIAN DRAINAGE S GROUP ABSCESS COMPLICAT ED/[place] [address] [facility] & 7 MEDICAL PELVIS IMAGING W/CONTRAS ASS T MATERIAL FINAL G9551 NIESHA WILKINS REPR ABD 7 MEDICAL IMAG STS IMAGING W/O ASS INCIDNT FND LES NTD: FINAL G9638 [facility] RE[facility]TS 7 MEDICAL W/O DOC IMAGING 1/MORE ASS DOSE REDUCTION TECH Encounters Encounter Start End Date Code Location Performer Type Date OFFICE 59616 [facility] RASHMI OUTPATIEN 7 7 PHYSICIAN T VISIT 5 S GROUP MINUTES OFFICE 84390 [facility] HERNANDEZ OUTPATIEN 7 7 PHYSICIAN T VISIT S GROUP 15 MINUTES OFFICE 83287 [facility] T VISIT 5 INC [facility]UTES [facility] T OFFICE 98964 [facility] T [...] [facility] INC T OFFICE 22960 [facility] OUTPATIEN 6 6 PHYSICIAN T NEW 20 GROUP MINUTES [facility]
--- OUTSIDE RECORDS SUMMARY | 2017-02-20 21:03 | External Medical Summary Rpt | CCD ---
Author Author , RAQUEL GARCÍA Address Unknown Phone [email or web address] Immunization Name Date Rout CVX Reac Dose Comm Prov Is Faci e tion ent ider Refu lity Give sed n Hep 08-2 8 999 Hist H136 No H136 B, 7-20 [facility] al adol Info rmat ion - Sour ce Unsp ecif ied
--- OUTSIDE RECORDS SUMMARY | 2017-02-20 21:03 | External Medical Summary Rpt | CCD ---
Author Author , RAQUEL GARCÍA Address Unknown Phone [email or web address] Immunization Name Date Rout CVX Reac Dose Comm Prov Is Faci e tion ent ider Refu lity Give sed n Hep 08-2 8 999 Hist H136 No H136 B, 7-20 [facility] al adol Info rmat ion - Sour ce Unsp ecif ied
--- NOTE | 2017-02-20 21:21 | Emergency Room Report ---
History of Present Illness Time Seen by [id number] Presenting Problem in Triage Pt arrived:Walked Presenting Problem:SOB,NAUSEA Onset of symptoms date/time:02/20/1711/29/1029 or onset unknown for:MEDICAL HX UNKNOWN Treatment Prior to Arrival: VETERINARIAN SMALL ANIMAL Provided by: Sepsis Risk Assessment: Temp: 100.6 B/P: 147/86 MAP: 106 Pulse: 118 Resp: 22 Recent fever? Y Clinical Suspician of Infection? N Mental Status: 1 - Regular (Normal Baseline) Sepsis Risk:Possible Sepsis Risk Have you (or family members/close friends) recently traveled outside the [place]? N If Yes, where/when: Have you had exposure to infectious disease within the past month? TB? Other? Specify: Source patient, RN notes reviewed, family, old records Exam Limitations no limitations Comment pt reports upper abd pain since this am with vomiting but no diarrhea and has fever but no cough but feels sob - Cardiac Chest Pain Chest pain indicative of cardiac No Timing/Duration this evening Severity moderate ALLERGIES Coded Allergies: No Known Allergies (12/10/16) Home Medications Reported Medications Montelukast Sodium 10 MG PO DAILY #30 History Medical History General CAD? No Angina: No VT: No Hypertension? No Hyperlipidemia? No CHF? No DVT? No PE? No COPD? No Asthma? No Anemia? No GERD? No Gastric ulcers? No GI Bleed? No Hernia? No Thyroid Problems? No Hypothyroidism? No CVA? No Seizures? No Diabetes? No Renal Insuffiency? No End Stage Renal Disease? No UTI? No Stones? No BPH? No GB Disease: No Nephritic Syndrome? No Asplenia? No Hepatitis? No Sickle Cell Disease? No Arthritis? No Migraines? No Cataracts? No Glaucoma? No MRSA? No HIV? No TB? No Anxiety? No Depression? No Cancer? No More? Yes Additional hx: ALLERGIES Immunization Hx Ped.Immunizations UTD Yes DT/Tetanus 1-4 Years Ago Surgical Hx Previous Surgery?Y Tonsils BOIL REMOVAL Social History Smoking Hx Smoker: Former Smoker Tobacco: Yes Type Chew Packs/day < 1 Pack Alcohol Alcohol: No Drugs none Review of Systems All Other Systems Reviewed and Negative Constitutional denies fever Eyes denies drainage ENT denies: ear pain, epistaxis, throat pain. Respiratory see HPI, denies cough, shortness of breath, denies wheezing Cardiovascular denies chest pain, denies palpitations, denies syncope Gastrointestinal see HPI, abdominal pain, denies diarrhea, nausea, vomiting Genitourinary denies: dysuria, frequency, hesitancy, hematuria. Musculoskeletal denies back pain, denies joint pain, denies joint swelling, denies other Skin denies rash Psychiatric/Neurological denies headache, denies seizure Physical Exam Vital Signs Vital Signs Date Time Temp Pulse Resp B/P Pulse O2 O2 Flow FiO2 Ox Delivery Rate 02/21 2108 100.6 118 22 147/86 96 02/20 2057 101.1 136 22 127/91 96 - WBC >12,000 or <4,000 or 10% bands? 2 or more SIRS Criteria Met? B/P:147/86 MAP:106 Creatinine >2.0? UA output<0.5ml/kg/hr for 2 hrs? Platelet count >100,000? Lactate >2.0mmol/1? INR >1.2 or PTT > than 60 sec? Evidence of Organ Dysfunction? Provider documented clinical suspician of infection? N Sepsis Criteria Count: 2 Sepsis Risk: Possible Sepsis Risk General Appearance no apparent distress Eye Exam - bilateral eye PERRL, bilateral eye EOMI Ear, Nose, Throat normal ENT inspection Neck supple Respiratory Status No: respiratory distress. Lung Sounds bilateral: lungs clear. Cardiovascular regular rate/rhythm, no gallop, no JVD, no murmur Peripheral Pulses Pulses normal Yes Gastrointestinal soft, no organomegaly, no pulsatile mass, no guarding, no rebound, tenderness Back no CVA tenderness Extremities normal inspection Strength 4 Upper Ext (L), 4 Upper Ext (R), 4 Lower Ext (L), 4 Lower Ext (R) Neurologic alert, manager fine dining II-XII nml as tested, no motor/sensory deficits Reflexes Reflexes normal No Mental status normal mood/affect Skin intact Medical Decision Making LABS/Meds/Orders Pt receiving controlled substance in ED? No Results/Orders Laboratory Tests 02/20/172129: Urine Color YELLOW, Urine Appearance CLEAR, Urine pH 6.0, Ur Specific [place] >= 1.030, Urine Protein 2+ H, Urine Ketones TRACE H, Urine Blood NEGATIVE, Urine Nitrate NEGATIVE, Urine Bilirubin NEGATIVE, Urine Urobilinogen 0.2, Ur Leukocyte Esterase NEGATIVE, Urine WBC 3-5, Amorphous Sediment 1+, Hyaline Casts 5-10, Urine Mucus 4+, Urine Glucose NEGATIVE 02/20/172114: Lactic Acid 1.6 02/20/172114: Amylase 48, Lipase 101 02/20/172114: Sodium 138, Potassium 3.7, Chloride 102, Carbon Dioxide 25, BUN 14, Creatinine 1.0, Estimated Creat Clear 198, Estimated GFR (MDRD) 90, Glucose 111 H, Calcium 9.0, Total Bilirubin 0.7, AST 27, ALT 58, Alkaline Phosphatase 84, Total Protein 7.8, Albumin 4.3, Globulin 3.5 H, Albumin/Globulin Ratio 1.2, WBC 13.3 H, RBC 5.42, Hgb 16.1, Hct 48.6, MCV 89.6, RDW 12.7, Plt Count 314, MPV 7.8, Gran % 91.0 H, Gran # 12.1 H, Total Counted 100, Lymphocytes % 4.3 L, Monocytes % 4.0, Eosinophils % 0.5, Basophils % 0.2, Neutrophils 84 H, Band Neutrophils 8, Lymphocytes (Manual) 3 L, Lymphocytes # 0.6 L, Monocytes # 0.5, Eosinophils # 0.1, Eosinophils # (Manual) 5 H, Basophils # 0.0, RBC/WBC/PLT Morphology NORMAL , Platelet Estimate NORMAL, PUBS MCHC 33.1, MCH 29.7 Current Medication Orders Sig/Jojo Start time Last Medication Dose Route Stop Time Status Admin Albuterol 0 .STK-MED ONE 02/21 2336 SC IH Albuterol 0 .STK-MED ONE 02/21 2336 DC INH Miscellaneous 0 .STK-MED ONE 02/21 2336 DC XX Sodium Chloride 50 ML .STK-MED ONE 02/20 2331 DC IV Albuterol 2.5 MG ONCE ONE 02/20 2330 DC INH 02/20 2331 Albuterol 2 PUFFS ONCE ONE 02/20 2330 DC IH 02/20 2331 Ceftriaxone Sodium 1 GM ONCE ONE 02/20 2330 DC 02/20 Sodium Chloride 50 ML IV 02/20 Ceftriaxone Sodium 0 .STK-MED ONE 02/20 2330 DC IV Methylprednisolone 125 MG ONCE ONE 02/20 2330 DC 02/20 Sodium Succinate IV 02/20 Methylprednisolone 0 .STK-MED ONE 02/20 2330 DC Sodium Succinate .ROUTE Miscellaneous 1 UNIT ONCE ONE 02/20 2330 DC XX 12/09 2331 Acetaminophen 650 MG ONCE ONE 02/20 2115 DC 02/20 PO 02/20 Ibuprofen 600 MG ONCE ONE 02/20 2115 DC 02/20 PO 02/20 Sodium Chloride 10 ML PRN PRN 02/20 2115 AC IV 02/22 2108 Sodium Chloride 1,000 ML .Q1H1M 02/20 2115 DC 02/20 IV 02/20 Sodium Chloride 10 ML PRN PRN 02/20 2115 AC IV 02/22 2108 Sodium Chloride 1,000 ML .STK-MED ONE 02/20 2115 DC IV Acetaminophen 0 .STK-MED ONE 02/20 2111 DC PO Ibuprofen 0 .STK-MED ONE 02/20 2111 DC PO Orders Procedure Date/time Status DIET-NOTHING BY MOUTH 02/21 B Active RT REQUEST ALBUTEROL INHALER 02/20 2325 Active RT REQUEST ALBUTEROL NEB 02/[address] ABD & PELVIS W/O CONTRAST 02/[address] SCAN REQ 02/20 2217 Active LIPASE 02/20 2217 Complete AMYLASE 02/20 2217 Complete DIFFERENTIAL-WBC 02/20 2115 Complete CULTURE, BLOOD 02/20 2110 Active LACTIC ACID 02/20 2110 Complete CHEST(2 VIEWS-NOT PORTABLE) 02/20 2109 Active IV SALINE LOCK 02/20 2109 Active URINALYSIS/COMPLETE 02/20 2109 Complete CBC WITH AUTO DIFF 02/20 2109 Complete CHEM 12 PROFILE 02/20 2109 Complete XRAY/CT/US XRAY/CT/US 1 XRAY chest XR interpretation by reviewed by me Xray Results normal/NAD XRAY/CT/US 2 CT abdomen, pelvis CT interpretation by reviewed by me Time results known: 2324 CT Results normal/NAD Departure Departure Time of Disposition 0001 Disposition DC Home or Self Care(routine) Clinical Impression Primary Impression: Febrile illness, acute Condition STABLE Patient Instructions DI for Fever (Symptom) -- Adult Additional Instructions use meds and fluids and will see pcp for follow up Discharge Counseling Counseled pt/family regarding diagnosis, test results, medications/RX, follow up needs Prescriptions Current Visit Scripts Azithromycin (Zithromycin (Z-ERIN) 250MG Tab) 250 MG PO DAILY #6 TAB TAKE TWO (2) TABLETS ON DAY 1, THEN ONE (1) TABLET DAY #2 THRU #5 ED Critical Care Critical Care No at 0003
[2017-02-20 21:37] LABS: HEMOGLOBIN 16.1 g/dL (14.1-18.0); LYMPH # 0.6 K/mm3 (0.7-4.5); LYMPH % 4.3 % (10-50)
[2017-02-20 21:46] LABS: URINE BLOOD NEGATIVE (NEG)
[2017-02-20 21:52] LABS: URINE BILIRUBIN - DIPSTICK NEGATIVE (NEG)
[2017-02-20 21:58] LABS: NEUTROPHILS 84 % (42-76)
[2017-02-21] MEDS ORDERED: ZITHROMAX Z PA250 MG PO (00:03)
[2017-02-21] MEDS ORDERED: ZOFRAN4 MG PO (00:04)
[2017-02-21 00:22] VITALS: BP 142/76
--- NOTE | 2017-02-21 08:07 | RADIOLOGY REPORT PS360 ---
CHEST(2 VIEWS-NOT PORTABLE) INDICATION: Shortness of breath and fever COMPARISON: PA and lateral chest 12/08/2015 FINDINGS: The lung frey are well expanded and appear clear of infiltrate. The cardiomediastinal silhouette and vascularity are normal. The costophrenic angles are clear. The bony thorax is normal. IMPRESSION: Normal chest.
--- NOTE | 2017-02-21 08:13 | RADIOLOGY REPORT PS360 ---
CT ABD PELVIS W/O CONTRAST COMPARISON: CT scan abdomen pelvis 12/06/2016 HISTORY: Nausea vomiting and abdominal pain TECHNIQUE: Multiple axial scans obtained from the hemidiaphragms the pelvic floor and were performed without IV or oral contrast. Sagittal coronal reformats were evaluated as well. FINDINGS: The lower lung frey are clear. The liver is normal size and shows mild diffuse fatty infiltration. Stomach spleen pancreas and gallbladder are normal. The adrenal glands are normal. The kidneys are normal in size and there are no calculi and is no obstructive uropathy. The small bowel appears normal. The appendix is normal. There is minimal scattered stool throughout the colon. There are a few scattered diverticuli of the lower descending and sigmoid colon without diverticulitis. The urinary bladder is decompressed, the prostate is normal. There is a small right inguinal hernia containing fat only. There are several small nodes at the root of the mesentery. IMPRESSION: Mild diffuse fatty infiltration of the liver and mild diverticulosis of the lower descending and sigmoid colon, agree the [facility] report
== END 2017-02-21 00:25 | disposition home or self-care (01) ==
LOC: UTC 20:54 → ER 20:59
PROVIDERS: Emergency Medicine
DX: R50.9 Fever, unspecified (principal); F17.220 Nicotine dependence, chewing tobacco, uncomplicated